=== PATIENT | male | born 1955 | race Caucasian/White ===

== ENCOUNTER 2016-11-15 11:04 | Inpatient (IN) ==
[~2016-11-15 11:04] MED LIST: ASPIRIN 325 MG TABLET PO ONE; DIAZEPAM 5 MG TABLET PO ONE; MAGNESIUM SULF RIDER 2 GM in PREMIX 1 EACH IV PRN; POTASSIUM CHLORIDE RIDER 10 MEQ in PREMIX 1 EACH IV PRN; SODIUM CHLORIDE 0.9% 1,000 ML IV SCH; diphenhydrAMINE CAP 25 MG CAPSULE PO ONE
--- NOTE | 2016-11-15 11:39 | Event Note ---
The patient has a history of resection of coronary disease. He has symptomatology certainly consistent with possible coronary disease. His evaluation revealed that his left ventricular function is diminished for unknown reason. His heart perfusion study was borderline. He has abnormal ECG consistent with LVH/ischemia. Because of his multiple risk factors and symptomatology he needs further evaluation and cardiac catheterization is appropriate for evaluation coronary disease and his cardiomyopathy. I discussed again cardiac catheterization and possible percutaneous intervention with the patient his reviewing the indication procedure, how it would be carried out and the risk. I discussed cardiac catheterization and percutaneous coronary intervention with the patient and available family. I reviewed with them the indications for the procedure and the basis of how the procedure would be carried out. I also reviewed with them the risk of the procedure which include but not necessarily limited to access site bleeding, bruising, pain, swelling or vascular injury that may require emergency vascular surgery, blood transfusion, or thrombin injection. Also discussed the possibility of stroke, myocardial infarction, arrhythmia which may require electrocardioversion, and the possibility of dye reaction that would require medical therapy. Also discussed the possibility of coronary artery injury, ruptured, closure or perforation that may require emergency bypass surgery. We also discussed the possibility of from a major complication. Their questions were answered. They voice understanding and agree to proceed.
--- NOTE | 2016-11-15 11:40 | History and Physical Update ---
Sedation H&P Update - History and Physical H&P was reviewed, the patient examined and there: are no changes in the patients condition since last H&P was completed. - Dictation Physical: refer to scanned H&P - Physical Exam Mental Status: alert and oriented Heart: regular rate and rhythm Lung: clear to auscultation Abdomen: within normal limits Vitals: within normal limits History and Physical Changes: None - Sedation Plan for Sedation: moderate Patient Consent: Procedure disscussed with patient and patinet has consented., Risks and benefits were discussed with patient,including infection,, bleeding, injury to surrounding structures, seizure, temporary nerve, Patient understands and accepts potential risks/benefits and agrees to, proceed. ASA Class: III Airway Assessment: Class III: Soft palate, base of uvula visible
[2016-11-15] MEDS ORDERED: ASPIRIN 325 MG TABLET ONE (11:47)
[2016-11-15] MEDS ORDERED: diphenhydrAMINE CAP 25 MG CAPSULE ONE (11:47)
[2016-11-15] MEDS ORDERED: DIAZEPAM 5 MG TABLET ONE (11:47)
[2016-11-15] MEDS ORDERED: LIDOCAINE 1% 20 ML VIAL ONE (12:14)
[2016-11-15] MEDS ORDERED: MIDAZOLAM 2 MG/2 ML VIAL ONE (12:15)
[2016-11-15] MEDS ORDERED: VERAPAMIL 5 MG/2 ML VIAL ONE (12:15)
[2016-11-15] MEDS ORDERED: NITROGLYCERIN DRIP 50 MG/250 ML BOTTLE IV ONE (12:15)
[2016-11-15] MEDS ORDERED: fentaNYL 100 MCG/2 ML VIAL ONE (12:15)
[2016-11-15 12:26] LABS: Calcium 8.8 MG/DL (8.5-10.1); Magnesium 2.2 MG/DL (1.8-2.4); Osmolality,Calculated 281.4 MOS/KG (273-304); Potassium 4.1 MMOL/L (3.5-5.1)
[2016-11-15] MEDS ORDERED: ENOXAPARIN 30 MG/0.3 ML SYRINGE ONE (12:30)
[2016-11-15] MEDS ORDERED: ACETAMINOPHEN 325 MG TABLET PO PRN (13:19)
[2016-11-15] MEDS ORDERED: NITROGLYCERIN SL 0.4 MG TABLET SL PRN (13:19)
[2016-11-15] MEDS ORDERED: ONDANSETRON 4 MG/2 ML VIAL IV PRN (13:19)
[2016-11-15] MEDS ORDERED: HYDROmorphone 2 MG/1 ML VIAL IV PRN (13:19)
[2016-11-15] MEDS ORDERED: ZALEPLON 5 MG CAPSULE PO PRN (13:27)
[2016-11-15] MEDS ORDERED: ALUMINUM/MAGNES/SIMETH MAX STR 30 ML UDCUP PO PRN (13:27)
[2016-11-15] MEDS ORDERED: SODIUM CHLORIDE 0.9% 1,000 ML IV SCH ×2 (13:30→21:00)
--- NOTE | 2016-11-15 13:30 | Operative Note ---
Date of procedure: 11/15/16 Procedure Preformed: Left heart catheterization with LV gram, WARD angiogram and coronary artery angiography. Unable to carry out procedure from right radial artery. Abdominal aortic angiogram with runoff into the iliacs. Surgeon / Physician: Francisco Olmedo Oncology Physician Assistant: Yina Euceda Post-op diagnosis: same Findings: High-grade coronary artery disease involving the left main coronary artery and RCA. Patient also has high-grade peripheral vascular disease involving the right and left iliacs. See full report for details. Specimens: none sent Estimated blood loss: minimal Condition: stable Anesthesia: local, conscious sedation Disposition: floor
--- NOTE | 2016-11-15 13:34 | Cardiac Catheterization ---
Date of Procedure:: 11/15/16 Post-op diagnosis: same Procedure: LEFT HEART CATHERIZATION History: Pre-Op diagnosis: Postoperative diagnosis: Procedures: 1. Left heart catheterization. This was initially attempted from right radial but had to transition to right common femoral artery approach 2. Left ventricular angiogram. 3. Selective left and right coronary angiograms. 4. Right common femoral artery angiogram with Angio-Seal hemostasis. 5. Left internal mammary artery angiogram. Equipment: Terumo 6 Vietnamese radial glide arterial sheath, Terumo 6 Vietnamese radial TIG 4.0 diagnostic. We are unable to carry out catheterization from this approach and transition to right common femoral artery. Large TR band. 6 Vietnamese arterial sheath, 6 Vietnamese diagnostic pigtail catheter, JL4 and JR4 diagnostic catheters. A 6 Vietnamese Angio-Seal hemostatic device. Medications: Preoperative Benadryl and Valium given by mouth. Lidocaine 1% local anesthesia 10.5 mls administered by myself. For radial approach verapamil 5 mg /NTG 200 mcg given intra-arterially through the radial artery sheath, Lovenox 30 mg IVP. Intraprocedure patient received Versed 1 mgs IVP, fentanyl 50 mcg IVP. Complications: None immediate. Contrast: Visipaque 130 milliliters. Description of procedure: After informed consent the patient was given preoperative medications and brought to the catheterization laboratory where their right groin and right anterior wrist and forearm was prepped and draped in usual fashion. IV sedation was then obtained after which local anesthesia with lidocaine was administered over the right radial artery. Using the double wall needle the radial artery was cannulated. Microguidewire was advanced through the cannula into the radial artery. We exchanged for the radial artery sheath that was advanced over the microguidewire. Guidewire was removed. The diagnostic 6 Vietnamese TIG 4.0 catheter was advanced and we attempted cardiac catheterization with this catheter. Because of the patient's anatomy we were unable to cross the aortic valve nor were we able to manipulate the catheter into the coronary arteries. It was decided that we would transition to the right common femoral artery. Local anesthesia was administered at the right groin over the right common femoral artery. Using modified Seldinger technique the right common femoral artery was cannulated with 6 Vietnamese arterial sheath placed. It was noted we had difficulty advancing the J-wire through the external iliac. A flush shot with contrast through the sheath revealed that we had a high-grade stenosis in the external iliac artery. The pigtail catheter was then advanced through all with this the sheath in a retrograde approach through the aorta to the aortic valve. The catheter was advanced through the aortic valve where left ventricular pressures were measured. The catheter was then pulled back into the aortic root and pressures measured. The catheter was then advanced across the aortic valve into the left ventricle where left ventricular angiogram was obtained in the right anterior oblique view. The pigtail catheter was then removed. The JL4 diagnostic coronary catheter was then advanced through the sheath in a retrograde approach and used to cannulate the left coronary artery of which angiograms were obtained in multiple projections. This catheter was then removed. The JR 4 diagnostic coronary catheter was then advanced retrograde through the aorta and used to cannulate the right coronary artery of which angiograms were obtained in multiple projections. This right coronary catheter was used to obtain selective left internal mammary artery angiogram. Angiograms were then reviewed. The right coronary catheter was pulled back into the sheath where a right common femoral artery angiogram was obtained with Angio-Seal hemostasis then obtained of this vessel. Before closing with a Angio-Seal device we though did use the pigtail catheter again to obtain a distal abdominal aortogram with runoff into the iliac vessels. There were no immediate complications. The TR band was then placed in the usual fashion and hemostasis obtained. Hemodynamic data: LV 106/10 , EDP 11 ; AO root 109/76 , mean 91 . Left ventricular angiogram: Left ventricle is normal size and ejection fraction is probably 45 may be 50%. No specific segmental wall motion normality is noted. It appears there is probably some left ventricular hypertrophy present. The aortic root is uncoiled. No gross of the pathology of the aorta. Aortic valve is probably try constructed. There is no significant mitral valve regurgitation noted. Left main coronary artery angiogram: Calcification is present especially distally. The main coronary appears to give rise to one is a small circumflex artery that gives rise to small circumflex artery. The LAD is a medium caliber long vessel that extends to the posterior apex. There is also was probably either a ramus intermedius or first diagonal branch with a takeoff in this area. There is probably at least 30% to 40% stenosis distally Left anterior descending artery angiogram: The LAD is a medium caliber vessel that extends to the posterior apical region. Proximally he has a high-grade stenosis with calcification at its ostium and takeoff of the left main coronary. This stenosis is 80-90%. There is what is probably a first diagonal/ ramus intermedius with a takeoff right at this area that also is involved in the stenosis that is 80-90%. The LAD beyond this has a long area of 50-60% stenosis. Circumflex artery angiogram: Circumflex artery is a small vessel giving rise to a small obtuse marginal branch. It is without any significant stenosis demonstrated. Right coronary artery angiogram: The RCA is a medium to large caliber dominant vessel that gives rise to a medium caliber PDA and is small medium caliber posterior lateral branches. They do not has a takeoff the distal RCA. The mid RCA has a 90% mid stenosis. Left internal mammary artery angiogram: The WARD is patent and after bypass surgery. There is no gradient in the subclavian artery. Right common femoral artery angiogram: This is carried out early and we see that the cuff artery is patent but the distal external iliac had a high-grade 80 -90 % stenosis. There is diffuse calcification. Distal abdominal aorta angiogram with runoff: The distal abdominal aorta is patent with diffuse irregularities. There is a slight aneurysmal dilation just above the bifurcation. The left common iliac appears to be intact with total occlusion past the takeoff of the internal iliac. There are collaterals present and we see reconstitution of the left common femoral artery. The right external iliac is occluded from the catheter where the 89% lesion/stenosis was noted. There is diffuse luminal irregularities. Impression: 1. Left ventricle is normal size of probably left ventricular hypertrophy with a ejection fraction of 45 and at best 50%. 2. LVEDP is normal at 11 mmHg. 3. Aortic valve is probably tricuspid structure without gradient. 4. No sent mitral valve regurgitation is noted. 5. RCA is dominant with 90% mid stenosis. 6. Left main coronary distally has 30-40% stenosis and calcification. 7. Circumflex arteries a small vessel without significant stenosis. 8. LAD gives rise to a large first diagonal/ramus intermedius branch very proximally. There is 80-90% stenosis of the ostium of the LAD involving the ostium of the first diagonal/ramus intermedius. 9. There is high-grade stenosis of the right and left iliac arteries a total occlusion of the left external iliac with reconstitution of the common femoral artery. Right external iliac has 89% stenosis. 10. Left coronary artery is patent and added for bypass surgery. 11. Successful hemostasis the right common femoral artery. Discussion: We will marked this patient post catheterization and will ask cardiovascular to see the patient for bypass surgery. He will need aggressive risk factor modification. Implants: None Anesthesia: local, moderate conscious sedation Surgeon / Physician: Francisco Olmedo Side Seam Machine Operator: other (Yina Euceda RN) Estimated blood loss: minimal Specimens: none sent Condition: stable Disposition: floor - Medications / Follow-up
[2016-11-15] MEDS ORDERED: DEXTROSE 50% 25 GM/50 ML VIAL IV PRN ×2 (13:50)
[2016-11-15] MEDS ORDERED: GLUCAGON 1 MG VIAL IM PRN ×2 (13:50)
--- NOTE | 2016-11-15 13:58 | Cardiothoracic Progress Note ---
Cardiothoracic Subjective Interval history: Patient is a 61-year-old man who underwent outpatient cardiac catheterization today and was found to have critical disease of the left main coronary artery and critical disease also over the right coronary artery. Patient was referred for bypass surgery and I agree that this is the best course. Patient is scheduled for Saturday morning and this is been discussed at length with patient his daughter and son-in-law. Exam (Progress Note) - Constitutional Vitals: Period Temp Pulse Resp BP Sys/Leyva Pulse Ox Last 24 Hr 97.9 F 82 18 193/110 96 Result/EKG - Labs CBC & BMP: 11/15/16 Unknown Labs: Laboratory Results - last 24 hr 11/15/16 Unknown Sodium 140 Potassium 4.1 Chloride 107 Carbon Dioxide 22 Anion Gap 15.1 H BUN 20 H Creatinine 1.40 H GFR Calculation 65 BUN/Creatinine Ratio 14.00 Glucose 95 Calculated Osmolality 281.4 Calcium 8.8 Magnesium 2.2 Quality Measures - VTE Contraindication to Pharmacological VTE Prophylaxis: High Risk of Bleeding
--- NOTE | 2016-11-15 14:25 | EKG Report ---
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
--- NOTE | 2016-11-15 14:25 | XRay Report ---
XR chest 1V portable Indication: Coronary artery disease Comparison: 30 October 2016 Findings: The heart and mediastinum are normal in size and configuration. The pulmonary vascularity is normal in caliber. Lung volumes are increased with prominent bronchial markings. No lung infiltrates, effusions, pneumothorax or other abnormality is demonstrated. Impression: Chronic lung changes. No acute process or significant change. PROCEDURE INTERPRETED AT [facility] DEPARTMENT OF RADIOLOGY Final Report Signed by: Dr. Nick Sewell
[2016-11-15 14:46] LABS: Basophils # 0.1 10*3/uL (0.0-0.2); Basophils % 1.6 % (0.0-0.8); Eosinophils # 0.4 10*3/uL (0.0-0.87); Eosinophils % 4.8 % (0.00-10.9); Hematocrit 43.9 VOL% (42.0-52.0); Hemoglobin 15.3 GM/DL (14.0-18.0); Immature Granulocytes % 0.6 %; Immature Granulocytes Absolute 0.05 #; Lymphocytes # 2.2 10*3/uL (1.4-4.0); Lymphocytes % 25.3 % (21.2-54.2); Mean Corpuscular HGB Conc 34.9 GM/DL (32-36); Mean Corpuscular Hemoglobin 31 PG (27-34); Mean Corpuscular Volume 89.8 FL (87-102); Mean Platelet Volume 10.1 FL (9.6-12.0); Monocytes # 0.6 10*3/uL (0.11-0.8); Monocytes % 6.9 % (1.7-12.7); Neutrophils # 5.4 10*3/uL (1.4-7.4); Neutrophils % 60.8 % (38.7-73.9); Platelet Count 217 T/CUMM (130-400); Red Blood Count 4.89 MC/CUMM (3.8-5.5); Red Cell Distribution Width 13.5 % (9.3-17.3); White Blood Count 8.8 T/CUMM (4-12)
[2016-11-15 15:00] LABS: PT Patient Result 10.7 SECS
[2016-11-15 15:23] LABS: Albumin 3.4 G/DL (3.4-5.0); Bilirubin,Total 0.4 MG/DL (0.2-1.0); Calcium 8.9 MG/DL (8.5-10.1); Osmolality,Calculated 277.5 MOS/KG (273-304); Potassium 4.1 MMOL/L (3.5-5.1); Total Protein 6.9 G/DL (6.4-8.3)
--- NOTE | 2016-11-15 15:40 | Event Note ---
Patient is stable postcatheterization. Reviewed with him the findings of his catheterization. His is present on reviewed with her as well. He is for bypass surgery tomorrow.
[2016-11-15 16:09] LABS: Allen Test Positive
[2016-11-15 16:11] LABS: ABG Base Excess -1.7 MMOL/L (-2.5-2.5); ABG HCO3 21.2 MMOL/L (20-26); ABG Oxygen Saturation 94.7 % (95-100); ABG PCO2 31.7 MM HG (35-48); ABG PH 7.444 (7.35-7.45); ABG PO2 69.7 MM HG (80-95); ABG TCO2 22.2 MMOL/L (23-27)
[2016-11-15] MEDS: CHLORHEXIDINE 4% SOLN 118 ML BOTTLE TOP SCH ×2 (17:10→20:31)
--- NOTE | 2016-11-15 18:07 | Sleep Medicine Consult ---
Assessment and Plan (1) Unspecified sleep apnea Status: Acute Assessment and plan: This patient does have significant risk for coronary artery disease with his history of hypertension snoring and sleepiness. We will schedule him for outpatient sleep evaluation after discharge. Thank you for this consult and the opportunity to participate in his care. If we can be of further assistance in his hospital stay, please do not hesitate to reconsult sleep medicine. Current Visit: Yes (2) Essential hypertension Status: Acute Assessment and plan: The prevalence rate for obstructive sleep apnea patients with hypertension is 35 %. That rate can be as high as 80% in patients who require 4 or more medications for blood pressure control. Current Visit: Yes (3) Coronary artery disease Status: Acute Assessment and plan: The Pop data from Lancet 2005 proved significant reduction in the risk of fatal and nonfatal cardiac events in patients with severe obstructive sleep apnea compliant with CPAP, in comparison with those noncompliant with CPAP for severe sleep apnea. Patients with severe obstructive sleep apnea compliant with CPAP therapy had a risk similar to patients who did not even snore. The risk for cardiac events in patients noncompliant with CPAP for severe obstructive sleep apnea were 4-5 times higher for stroke or heart attack and 2- 3 times higher from from stroke or heart attack in that study. Current Visit: Yes History of Present Illness Chief complaint: Sleep apnea History of present illness: Mr. Salas is a 61 year old male admitted with chest pain and found to have abnormal heart cath with critical coronary artery disease. He has been seen by Dr. Ramy Elena and is to undergo bypass surgery tomorrow. He had screening done for sleep apnea and had a stop bang score of 5 and an [place] sleepiness score of 12. He does snore loudly and has difficulty maintaining sleep. He has no history of awakening from sleep short of breath or being told that he stops breathing during his sleep. He only urinates once or twice a night. He does have fatigue and sleepiness during the day. He does have a past medical history of hypertension in addition to his newly diagnosed coronary artery disease. Home Medications Medication Instructions Recorded Confirmed Type Diltiazem Cd Cap [Cardizem CD] 180 mg PO DAILY 11/14/16 11/15/16 History Valsartan/Hydrochlorothiazide 1 each PO DAILY 11/14/16 11/15/16 History [Valsartan-Hctz 320-25 mg Tab] Allergies Allergy/AdvReac Type Severity Reaction Status Date / Time No Known Allergies Allergy Verified 11/15/16 11:28 Review of systems: Otherwise unremarkable from a sleep standpoint. Exam (Pulmonay) H&P - Constitutional Vitals: Period Temp Pulse Resp BP Sys/Leyva Pulse Ox Last 24 Hr 97.7 F-97.9 F 76-82 17-18 159-193/103-110 95-96 Exam: He is alert and responsive in no acute distress. Pupils equal round reactive to light and accommodation. Extraocular movements intact. Oropharynx with a class III Mallampati exam. Neck supple without adenopathy or thyromegaly. No supraclavicular adenopathy is noted. Chest with symmetrical breath sounds without focal wheeze, rhonchi, or rales. Cardiac exam reveals a regular rhythm without murmur or gallop. Abdomen soft nontender without palpable hepatosplenomegaly or mass. Extremities are without clubbing, cyanosis, or edema. Neurologically, he is grossly intact. He moves all extremities with good strength and ambulates with a normal gait. Medical,Surgical,& Family Hx - Medical History Cardio: History of: CAD, Hypertension Neurology: No history of: Seizures Endocrine: History of: Dyslipidemia - Surgical History Cardiac Surgeries: Sugical HX of: Cardiac Catheterization - Family History Family History: Reports;: Family Heart Disease, Family Hypertension - Social History Smoking Status: Current every day smoker Frequency of Alcohol Use: Occasionally Type of Drug Use: None Results - Labs CBC & BMP: 11/15/16 14:36 11/15/16 Unknown Lab Results: I have reviewed the past 24 hour labs Quality Measures - VTE Contraindication to Pharmacological VTE Prophylaxis: High Risk of Bleeding
[2016-11-15] MEDS: METOPROLOL TARTRATE 25 MG TABLET PO SCH (20:31)
[2016-11-15] MEDS: CHLORHEXIDINE 0.12% ORAL RINSE 60 ML BOTTLE SWISH/SPIT SCH (20:36)
[2016-11-15] MEDS ORDERED: ROSUVASTATIN 20 MG TABLET PO SCH (21:00)
[2016-11-16] MEDS ORDERED: VANCOMYCIN 1,000 MG VIAL ONE (04:41)
[2016-11-16] MEDS ORDERED: PAPAVERINE 60 MG/2 ML VIAL ONE (04:41)
[2016-11-16 05:14] LABS: Calcium 9.3 MG/DL (8.5-10.1); Osmolality,Calculated 285.1 MOS/KG (273-304); Potassium 4.4 MMOL/L (3.5-5.1); Risk Ratio 7.23; VLDL CHOLESTEROL 45.2 MG/DL
[2016-11-16] MEDS ORDERED: MIDAZOLAM 10 MG/2 ML VIAL ONE ×3 (05:52→11:57)
[2016-11-16] MEDS ORDERED: SUFentanil 250 MCG/5 ML AMP ONE ×2 (05:52→11:56)
[2016-11-16] MEDS ORDERED: CEFUROXIME INJ 1,500 MG in SODIUM CHLORIDE 0.9% 100 ML IV ONE (06:00)
[2016-11-16] MEDS: CHLORHEXIDINE 0.12% ORAL RINSE 60 ML BOTTLE SWISH/SPIT SCH ×3 (06:12→22:23)
[2016-11-16] MEDS: PANTOPRAZOLE 40 MG TABLET PO SCH ×2 (06:12→06:29)
[2016-11-16] MEDS: METOPROLOL TARTRATE 25 MG TABLET PO SCH ×2 (06:30→10:52)
[2016-11-16] MEDS ORDERED: VECURONIUM 10 MG VIAL IV ONE (06:47)
[2016-11-16] MEDS ORDERED: FUROSEMIDE 20 MG/2 ML VIAL ONE ×2 (06:47→17:29)
[2016-11-16] MEDS ORDERED: PHENYLEPHRINE 1 MG/10 ML SYRINGE IV ONE (06:47)
[2016-11-16] MEDS ORDERED: NITROGLYCERIN 50 MG/250 ML BOTTLE IV ONE (06:47)
[2016-11-16] MEDS ORDERED: CALCIUM CHLORIDE 1,000 MG/10 ML SYRINGE IV ONE (06:47)
[2016-11-16] MEDS ORDERED: AMINOCAPROIC ACID 5,000 MG/20 ML VIAL IV ONE (06:47)
[2016-11-16] MEDS ORDERED: PHENYLEPHRINE 20 MG/250 ML PREMIX IV ONE (06:47)
[2016-11-16] MEDS ORDERED: ETOMIDATE 20 MG/10 ML VIAL IV ONE (06:47)
[2016-11-16 08:08] LABS: ABG HCO3 22.3 MMOL/L (20-26); ABG Oxygen Saturation 99.2 % (95-100); ABG PH 7.313 (7.35-7.45); ABG PO2 262.3 MM HG (80-95); ABG TCO2 23.7 MMOL/L (23-27); Glucose Heart Surgery 100 MG/DL (74-106); Hemoglobin Heart Surgery 14.7 G/DL (14.0-18.0); Ionized Calcium Arterial 1.17 MMOL/L (1.21-1.46); PH Patient Temp Arterial 7.313; PO2 Patient Temp Arterial 262.3 MM HG; Patient Temperature 37 CELCIUS; Potassium Heart/CVR 3.8 MMOL/L (3.5-5.1); Sodium Heart/CVR 140 MMOL/L (135-145)
[2016-11-16 08:25] LABS: Apearance,Urine CLEAR (Clear); Bilirubin,Urine Negative (Negative); Blood, Urine Negative (Negative); Glucose,Urine (UA) Negative (Negative); Ketones,Urine Negative (Negative); Mucus,Urine Occasional /LPF (Occasional); Nitrite,Urine Negative (Negative); Protein,Urine Negative; Urine Color Straw (Yellow); Urine Urobilinogen < 2.0 EU/DL (0.2-1.0); WBC,Urine <1 /HPF (0-6)
[2016-11-16] MEDS ORDERED: DEXTROSE 50% 25 GM/50 ML SYRINGE IV PRN ×3 (08:30→13:30)
[2016-11-16] MEDS ORDERED: ASPIRIN EC 81 MG TABLET PO SCH (09:00)
[2016-11-16] MEDS ORDERED: VALSARTAN/HCTZ 160-12.5 MG TABLET PO SCH (09:00)
[2016-11-16] MEDS ORDERED: DILTIAZEM CD 180 MG CAPSULE PO SCH (09:00)
[2016-11-16 09:15] LABS: Hematocrit Heart Surgery 29.3 PERCENT (42-52); Hemoglobin Heart Surgery 9.5 G/DL (14.0-18.0); PCO2 Patient Temp Venous 47.7 MM HG; PH Patient Temp Venous 7.323; PO2 Patient Temp Venous 46.6 MM HG; Potassium Heart/CVR 4.8 MMOL/L (3.5-5.1); VBG Base Excess -1.5 MEQ/L (0-4); VBG HCO3 22.8 MEQ/L (24-28); VBG Oxygen Saturation 79.3 %; VBG PCO2 47.7 MMHG (41-51); VBG PH 7.323; VBG PO2 46.6 MMHG (17-40)
[2016-11-16] MEDS ORDERED: POTASSIUM CHLORIDE RIDER 100 ML IV ONE (09:40)
[2016-11-16 09:41] LABS: Hematocrit Heart Surgery 32.7 PERCENT (42-52); Hemoglobin Heart Surgery 10.6 G/DL (14.0-18.0); PCO2 Patient Temp Venous 38.6 MM HG; PH Patient Temp Venous 7.389; PO2 Patient Temp Venous 39.3 MM HG; Potassium Heart/CVR 5.4 MMOL/L (3.5-5.1); VBG Base Excess -1.4 MEQ/L (0-4); VBG HCO3 22.9 MEQ/L (24-28); VBG Oxygen Saturation 79.4 %; VBG PCO2 42.5 MMHG (41-51); VBG PH 7.36; VBG PO2 45.1 MMHG (17-40)
[2016-11-16] MEDS: CHLORHEXIDINE 4% SOLN 118 ML BOTTLE TOP SCH (10:52)
[2016-11-16 11:02] LABS: ABG Base Excess -3.7 MMOL/L (-2.5-2.5); ABG HCO3 21.3 MMOL/L (20-26); ABG Oxygen Saturation 97.1 % (95-100); ABG PCO2 42.8 MM HG (35-48); ABG PH 7.324 (7.35-7.45); ABG PO2 96.5 MM HG (80-95); ABG TCO2 20.1 MMOL/L (23-27); Glucose Heart Surgery 170 MG/DL (74-106); Hematocrit Heart Surgery 34.3 PERCENT (42-52); Hemoglobin Heart Surgery 11.1 G/DL (14.0-18.0); Ionized Calcium Arterial 1.28 MMOL/L (1.21-1.46); PCO2 Patient Temp Arterial 42.8 MMHG; PH Patient Temp Arterial 7.324; PO2 Patient Temp Arterial 96.5 MM HG; Patient Temperature 37 CELCIUS; Potassium Heart/CVR 4.3 MMOL/L (3.5-5.1); Sodium Heart/CVR 136 MMOL/L (135-145)
[2016-11-16] MEDS ORDERED: THROMBIN TOPICAL (RECOMBINANT) 5,000 UNIT VIAL TOP ONE (11:04)
[2016-11-16] MEDS ORDERED: PHENYLEPHRINE DRIP 40 MG/250 ML PREMIX IV ONE (11:35)
--- NOTE | 2016-11-16 11:52 | Operative Note ---
Date of procedure: 11/16/16 Pre-op diagnosis: Coronary artery disease Post-op diagnosis: same Procedure: Procedure: Coronary bypass grafting 3 with a left internal mammary graft to the anterior descending coronary artery and saphenous vein graft to the obtuse marginal and right coronary arteries. Findings: Patient is a 61-year-old man who presented with substernal chest discomfort and cardiac catheterization demonstrating critical three-vessel coronary disease with left main coronary involvement. Patient was referred for bypass surgery. At the time of surgery left ventricular function was noted to be normal. A left internal mammary artery was placed as a graft to the anterior descending coronary artery which was a large vessel and free of disease at the site of anastomosis. Saphenous vein grafts were placed to the obtuse marginal and to the right coronary arteries both of which were large vessels and free of disease at the site of anastomosis. Patient tolerated procedure well and returned to recovery in satisfactory condition. Procedure: Patient brought the operating room placed on the operating table in supine position. After satisfactory induction of general anesthesia the chest abdomen and legs were prepped and draped in a sterile fashion. Greater saphenous vein was harvested from the left lower leg and prepared as an arterial graft. Incision in the leg was closed with 3-0 silk cutaneous Monocryl and 3-0 subcuticular Monocryl. A standard sternotomy incision was made and the sternum was divided and the heart suspended in a pericardial cradle. The left internal mammary artery was dissected free from its position in the anterior chest wall and prepared as an arterial graft. Patient was prepared for cardiopulmonary bypass with systemic heparinization cannulation of the ascending aorta and right atrium. Cardiopulmonary bypass was begun and the aorta was crossclamped and the heart arrested with cardioplegia solution injected into the aortic root. Heart was protected during the period of crossclamping with topical saline slush. Distal anastomoses were constructed as noted above and then the aorta was unclamped reestablishing cardiac action. Proximal anastomoses were constructed between the ascending aorta and the inflow ends of the saphenous vein grafts and then the patient was weaned from cardiopulmonary bypass. Heparin effect was reversed with protamine and decannulation was carried out in usual fashion with a defects in the ascending aorta and right atrium closed with 3-0 Prolene. Operative field was inspected for hemostasis and this was considered adequate incision was closed with interrupted stainless steel wire and the sternum and 0 Monopril in the presternal fascia. Skin was closed with 3-0 subcuticular Monocryl. 2 chest tubes were left in the anterior mediastinum and brought out through separate stab incisions. Patient was taken to recovery in satisfactory condition. Anesthesia: REMIGIO Surgeon / Physician: Ramy Elena Estimated blood loss: other (Unable to determine because of cardiopulmonary bypass) Condition: stable Disposition: ICU Results - Labs CBC & BMP: 11/16/16 11:00 11/16/16 04:05 Discharge Plan - Discharge Medications No Action Valsartan/Hydrochlorothiazide [Valsartan-Hctz 320-25 mg Tab] 1 each PO DAILY Diltiazem Cd Cap [Cardizem CD] 180 mg PO DAILY - Follow Up or Referral - Forms/Instructions
[2016-11-16] MEDS ORDERED: SUFentanil 50 MCG/ML AMP ONE (11:56)
[2016-11-16] MEDS: LACTATED RINGERS 1,000 ML IV PRN ×3 (12:00→13:31)
[2016-11-16] MEDS ORDERED: HEPARIN/NACL 0.9% 2 UNITS/ML 500 ML IV ONE (12:11)
--- NOTE | 2016-11-16 12:53 | Cardiology Progress Note ---
Cardiology - PN: Subj Interval history: Cardiology note Just returned from operating room status post three-vessel CABG with WARD graft to LAD, vein graft to OM vein graft to right coronary. Preop EF 45-50%. Telemetry shows sinus rhythm rate 90 Blood pressure 100/57, currently on no drips Cardiac gallop 3.5 cardiac index 1.7 Making good urine output Plan Follow chest tube output Wean vent as tolerated Labs pending Exam (Progress Note) - Constitutional Vitals: Period Temp Pulse Resp BP Sys/Leyva Pulse Ox Last 24 Hr 96.6 F-97.9 F 72-98 16-20 132-162/85-103 92-98 Result/EKG - Labs CBC & BMP: 11/16/16 11:00 11/16/16 04:05 Labs: Laboratory Results - last 24 hr 11/15/16 11/15/16 11/15/16 14:36 14:36 14:36 WBC 8.8 RBC 4.89 Hgb 15.3 Hct 43.9 MCV 89.8 MCH 31 MCHC 34.9 RDW 13.5 Plt Count 217 MPV 10.1 Neut % (Auto) 60.8 Lymph % (Auto) 25.3 [place] % (Auto) 6.9 Eos % (Auto) 4.8 Baso % (Auto) 1.6 H Neut # (Auto) 5.4 Lymph # (Auto) 2.2 [place] # (Auto) 0.6 Eos # (Auto) 0.4 Baso # (Auto) 0.1 Immature Gran % 0.6 Nucleated RBC % 0.0 Immature Gran # 0.05 Nucleated RBCs # 0.00 Immature Plt Fraction 0.0 INR 1.0 PT Patient/Control Mix 10.7 Patient Temperature ABG pH ABG pH at Pt Temp ABG pCO2 ABG pCO2 at Pt Temp ABG pO2 ABG pO2 at Pt Temp ABG HCO3 ABG Total CO2 ABG O2 Saturation ABG Base Excess ABG Sodium VBG pH VBG pCO2 VBG pO2 VBG HCO3 VBG Total CO2 VBG O2 Saturation VBG Base Excess Hemoglobin Hematocrit Ionized Calcium FiO2 Sodium 139 Potassium 4.1 Chloride 108 H Carbon Dioxide 26 Anion Gap 9.1 BUN 19 H Creatinine 1.30 GFR Calculation 71 BUN/Creatinine Ratio 14.00 Glucose 80 POC Glucose Calculated Osmolality 277.5 Calcium 8.9 Venous Ioniz Calcium Total Bilirubin 0.40 AST 15 ALT 28 Alkaline Phosphatase 109 Total Protein 6.9 Albumin 3.4 Globulin 3.5 Albumin/Globulin Ratio 0.9 L Triglycerides Cholesterol LDL Cholesterol VLDL Cholesterol HDL Cholesterol Heart Disease Risk Ratio Urine Color Urine Appearance Urine pH Ur Specific [place] Urine Protein Urine Glucose (UA) Urine Ketones Urine Blood Urine Nitrate Urine Bilirubin Urine Urobilinogen Urine Leukocytes Urine WBC Urine Mucus Ur Culture Indicated? Blood Type Antibody Screen Crossmatch 11/15/16 11/15/16 11/15/16 14:36 14:36 16:00 WBC RBC Hgb Hct MCV MCH MCHC RDW Plt Count MPV Neut % (Auto) Lymph % (Auto) [place] % (Auto) Eos % (Auto) Baso % (Auto) Neut # (Auto) Lymph # (Auto) [place] # (Auto) Eos # (Auto) Baso # (Auto) Immature Gran % Nucleated RBC % Immature Gran # Nucleated RBCs # Immature Plt Fraction INR PT Patient/Control Mix Patient Temperature ABG pH 7.444 ABG pH at Pt Temp ABG pCO2 31.7 L ABG pCO2 at Pt Temp ABG pO2 69.7 L ABG pO2 at Pt Temp ABG HCO3 21.2 ABG Total CO2 22.2 L ABG O2 Saturation 94.7 L ABG Base Excess -1.7 ABG Sodium VBG pH VBG pCO2 VBG pO2 VBG HCO3 VBG Total CO2 VBG O2 Saturation VBG Base Excess Hemoglobin Hematocrit Ionized Calcium FiO2 21.00 Sodium Potassium Chloride Carbon Dioxide Anion Gap BUN Creatinine GFR Calculation BUN/Creatinine Ratio Glucose POC Glucose Calculated Osmolality Calcium Venous Ioniz Calcium Total Bilirubin AST ALT Alkaline Phosphatase Total Protein Albumin Globulin Albumin/Globulin Ratio Triglycerides Cholesterol LDL Cholesterol VLDL Cholesterol HDL Cholesterol Heart Disease Risk Ratio Urine Color Urine Appearance Urine pH Ur Specific [place] Urine Protein Urine Glucose (UA) Urine Ketones Urine Blood Urine Nitrate Urine Bilirubin Urine Urobilinogen Urine Leukocytes Urine WBC Urine Mucus Ur Culture Indicated? Blood Type O POSITIVE O POSITIVE Antibody Screen Negative Crossmatch See Detail 11/16/16 11/16/16 11/16/16 04:05 05:52 08:06 WBC RBC Hgb Hct MCV MCH MCHC RDW Plt Count 75 L D MPV Neut % (Auto) Lymph % (Auto) [place] % (Auto) Eos % (Auto) Baso % (Auto) Neut # (Auto) Lymph # (Auto) [place] # (Auto) Eos # (Auto) Baso # (Auto) Immature Gran % Nucleated RBC % Immature Gran # Nucleated RBCs # Immature Plt Fraction INR PT Patient/Control Mix Patient Temperature ABG pH ABG pH at Pt Temp ABG pCO2 ABG pCO2 at Pt Temp ABG pO2 ABG pO2 at Pt Temp ABG HCO3 ABG Total CO2 ABG O2 Saturation ABG Base Excess ABG Sodium VBG pH VBG pCO2 VBG pO2 VBG HCO3 VBG Total CO2 VBG O2 Saturation VBG Base Excess Hemoglobin Hematocrit Ionized Calcium FiO2 Sodium 142 Potassium 4.4 Chloride 108 H Carbon Dioxide 27 Anion Gap 11.4 BUN 21 H Creatinine 1.50 H GFR Calculation 60 BUN/Creatinine Ratio 14.00 Glucose 91 POC Glucose 77 Calculated Osmolality 285.1 Calcium 9.3 Venous Ioniz Calcium Total Bilirubin AST ALT Alkaline Phosphatase Total Protein Albumin Globulin Albumin/Globulin Ratio Triglycerides 226 H Cholesterol 217 H LDL Cholesterol 146.0 VLDL Cholesterol 45.2 HDL Cholesterol 30 L Heart Disease Risk Ratio 7.23 Urine Color Urine Appearance Urine pH Ur Specific [place] Urine Protein Urine Glucose (UA) Urine Ketones Urine Blood Urine Nitrate Urine Bilirubin Urine Urobilinogen Urine Leukocytes Urine WBC Urine Mucus Ur Culture Indicated? Blood Type Antibody Screen Crossmatch 11/16/16 11/16/16 11/16/16 08:06 08:07 09:05 WBC RBC Hgb Hct MCV MCH MCHC RDW Plt Count MPV Neut % (Auto) Lymph % (Auto) [place] % (Auto) Eos % (Auto) Baso % (Auto) Neut # (Auto) Lymph # (Auto) [place] # (Auto) Eos # (Auto) Baso # (Auto) Immature Gran % Nucleated RBC % Immature Gran # Nucleated RBCs # Immature Plt Fraction INR PT Patient/Control Mix Patient Temperature 37 37 ABG pH 7.313 L ABG pH at Pt Temp 7.313 7.323 ABG pCO2 45.0 ABG pCO2 at Pt Temp 45.0 47.7 ABG pO2 262.3 H ABG pO2 at Pt Temp 262.3 46.6 ABG HCO3 22.3 ABG Total CO2 23.7 ABG O2 Saturation 99.2 ABG Base Excess -4.0 L ABG Sodium 140 132 L VBG pH 7.323 VBG pCO2 47.7 VBG pO2 46.6 H VBG HCO3 22.8 L VBG Total CO2 22.9 VBG O2 Saturation 79.3 VBG Base Excess -1.5 L Hemoglobin 14.7 9.5 L Hematocrit 43.0 29.3 L Ionized Calcium 1.17 L FiO2 21.00 Sodium Potassium 3.8 4.8 Chloride Carbon Dioxide Anion Gap BUN Creatinine GFR Calculation BUN/Creatinine Ratio Glucose 100 283 H POC Glucose Calculated Osmolality Calcium Venous Ioniz Calcium 0.95 L Total Bilirubin AST ALT Alkaline Phosphatase Total Protein Albumin Globulin Albumin/Globulin Ratio Triglycerides Cholesterol LDL Cholesterol VLDL Cholesterol HDL Cholesterol Heart Disease Risk Ratio Urine Color Straw Urine Appearance Clear Urine pH 6.0 Ur Specific [place] 1.010 Urine Protein Negative Urine Glucose (UA) Negative Urine Ketones Negative Urine Blood Negative Urine Nitrate Negative Urine Bilirubin Negative Urine Urobilinogen < 2.0 H Urine Leukocytes Negative Urine WBC <1 Urine Mucus Occasional Ur Culture Indicated? Not indicated Blood Type Antibody Screen Crossmatch 11/16/16 11/16/16 11/16/16 09:41 11:00 11:00 WBC RBC Hgb Hct MCV MCH MCHC RDW Plt Count 113 L D MPV Neut % (Auto) Lymph % (Auto) [place] % (Auto) Eos % (Auto) Baso % (Auto) Neut # (Auto) Lymph # (Auto) [place] # (Auto) Eos # (Auto) Baso # (Auto) Immature Gran % Nucleated RBC % Immature Gran # Nucleated RBCs # Immature Plt Fraction INR PT Patient/Control Mix Patient Temperature 35 37 ABG pH 7.324 L ABG pH at Pt Temp 7.389 7.324 ABG pCO2 42.8 ABG pCO2 at Pt Temp 38.6 42.8 ABG pO2 96.5 H ABG pO2 at Pt Temp 39.3 96.5 ABG HCO3 21.3 ABG Total CO2 20.1 L ABG O2 Saturation 97.1 ABG Base Excess -3.7 L ABG Sodium 132 L 136 VBG pH 7.360 VBG pCO2 42.5 VBG pO2 45.1 H VBG HCO3 22.9 L VBG Total CO2 21.9 VBG O2 Saturation 79.4 VBG Base Excess -1.4 L Hemoglobin 10.6 L 11.1 L Hematocrit 32.7 L 34.3 L Ionized Calcium 1.28 FiO2 80.00 Sodium Potassium 5.4 H 4.3 Chloride Carbon Dioxide Anion Gap BUN Creatinine GFR Calculation BUN/Creatinine Ratio Glucose 225 H 170 H POC Glucose Calculated Osmolality Calcium Venous Ioniz Calcium 1.01 L Total Bilirubin AST ALT Alkaline Phosphatase Total Protein Albumin Globulin Albumin/Globulin Ratio Triglycerides Cholesterol LDL Cholesterol VLDL Cholesterol HDL Cholesterol Heart Disease Risk Ratio Urine Color Urine Appearance Urine pH Ur Specific [place] Urine Protein Urine Glucose (UA) Urine Ketones Urine Blood Urine Nitrate Urine Bilirubin Urine Urobilinogen Urine Leukocytes Urine WBC Urine Mucus Ur Culture Indicated? Blood Type Antibody Screen Crossmatch Quality Measures - VTE Contraindication to Pharmacological VTE Prophylaxis: High Risk of Bleeding
[2016-11-16] MEDS: POTASSIUM CHLORIDE RIDER 20 MEQ in PREMIX 1 EACH IV PRN ×3 (13:00→23:35)
[2016-11-16] MEDS ORDERED: MAGNESIUM SULF RIDER 4 GM in PREMIX 1 EACH IV PRN (13:02)
[2016-11-16] MEDS ORDERED: SODIUM CHLORIDE 0.45% 1,000 ML IV SCH ×2 (13:02)
[2016-11-16] MEDS ORDERED: NITROPRUSSIDE 100 MG in DEXTROSE 5% 250 ML IV PRN (13:02)
[2016-11-16] MEDS ORDERED: INSULIN REGULAR 100 UNIT/ML IV PRN (13:02)
[2016-11-16] MEDS ORDERED: ONDANSETRON 4 MG/2 ML VIAL IV PRN (13:02)
[2016-11-16] MEDS ORDERED: ACETAMINOPHEN 650 MG SUPP RECTAL PRN (13:02)
[2016-11-16] MEDS ORDERED: INSULIN REGULAR 100 UNIT/ML IV ONE (13:02)
[2016-11-16] MEDS ORDERED: PHENYLEPHRINE DRIP 40 MG/250 ML PREMIX IV PRN (13:02)
[2016-11-16] MEDS ORDERED: MIDAZOLAM 10 MG/2 ML VIAL IV PRN (13:02)
[2016-11-16] MEDS ORDERED: MAGNESIUM SULF RIDER 2 GM in PREMIX 1 EACH IV PRN (13:02)
[2016-11-16] MEDS ORDERED: MORPHINE 10 MG/1 ML VIAL IV PRN (13:02)
[2016-11-16] MEDS ORDERED: LACTATED RINGERS 250 ML IV PRN (13:02)
[2016-11-16] MEDS ORDERED: VECURONIUM 10 MG VIAL IV PRN ×2 (13:02)
[2016-11-16] MEDS ORDERED: MIDAZOLAM 2 MG/2 ML VIAL IV PRN (13:02)
[2016-11-16] MEDS ORDERED: CALCIUM CHLORIDE 1,000 MG/10 ML SYRINGE IV PRN (13:02)
[2016-11-16] MEDS ORDERED: ALBUMIN 5% 12.5 GM/250 ML VIAL IV ONE (13:04)
[2016-11-16 13:08] LABS: ABG Base Excess -5.1 MMOL/L (-2.5-2.5); ABG HCO3 20.7 MMOL/L (20-26); ABG Oxygen Saturation 95.9 % (95-100); ABG PCO2 41.4 MM HG (35-48); ABG PH 7.317 (7.35-7.45); ABG PO2 91.8 MM HG (80-95); Glucose Heart Surgery 121 MG/DL (74-106)
[2016-11-16] MEDS: ALBUMIN 5% 12.5 GM in PREMIX 1 EACH IV PRN ×4 (13:09→22:21)
[2016-11-16 13:21] LABS: CKMB % 7.1 %
[2016-11-16 13:23] LABS: Troponin I Only 2.97 NG/ML (0.00-0.045)
[2016-11-16 13:24] LABS: Albumin 2.5 G/DL (3.4-5.0); Bilirubin,Total 0.4 MG/DL (0.2-1.0); Calcium 7.5 MG/DL (8.5-10.1); Magnesium 2.3 MG/DL (1.8-2.4); Potassium 4.3 MMOL/L (3.5-5.1); Total Protein 4.8 G/DL (6.4-8.3)
--- NOTE | 2016-11-16 13:44 | XRay Report ---
History: Postop line placement. Postop thoracic surgery Date: 11/16/2016 Study: Chest x-ray AP portable Comparison exam: 11/15/2016 The patient is status post median sternotomy. The endotracheal tube is well-positioned. A right subclavian Keota-Janette catheter is positioned over the proximal left descending pulmonary artery level. The left IJ central line is positioned with its tip over the superior vena cava. Chest drainage tubes overlie the mediastinum and left lung base. There is no obvious pneumothorax. There is cardiomegaly. There is some mild left lower lobe atelectasis and probable mild left pleural effusion. There is extrinsic tubing superimposed over the right lung apex. There is no confluent infiltrate to suggest pneumonia. Osseous structures are unremarkable. Impression: The supporting tubes are in satisfactory position. Left lower lobe atelectasis. Otherwise stable postoperative chest PROCEDURE INTERPRETED AT [facility] DEPARTMENT OF RADIOLOGY Final Report Signed by: Dr. Marjan Sim
[2016-11-16 14:03] LABS: Basophils # 0.1 10*3/uL (0.0-0.2); Basophils % 0.4 % (0.0-0.8); Eosinophils # 0.1 10*3/uL (0.0-0.87); Eosinophils % 0.7 % (0.00-10.9); Hematocrit 30.3 VOL% (42.0-52.0); Hemoglobin 10.4 GM/DL (14.0-18.0); Immature Granulocytes % 0.6 %; Immature Granulocytes Absolute 0.08 #; Lymphocytes # 0.9 10*3/uL (1.4-4.0); Lymphocytes % 7.4 % (21.2-54.2); Mean Corpuscular HGB Conc 34.3 GM/DL (32-36); Mean Corpuscular Hemoglobin 31 PG (27-34); Mean Corpuscular Volume 91.5 FL (87-102); Mean Platelet Volume 10.6 FL (9.6-12.0); Monocytes # 0.4 10*3/uL (0.11-0.8); Monocytes % 3.6 % (1.7-12.7); Neutrophils # 10.8 10*3/uL (1.4-7.4); Neutrophils % 87.3 % (38.7-73.9); Platelet Count 140 T/CUMM (130-400); Red Blood Count 3.31 MC/CUMM (3.8-5.5); Red Cell Distribution Width 13.6 % (9.3-17.3); White Blood Count 12.4 T/CUMM (4-12)
[2016-11-16 14:06] LABS: ABG Base Excess -2.9 MMOL/L (-2.5-2.5); ABG Oxygen Saturation 97.3 % (95-100); ABG PCO2 41.5 MM HG (35-48); ABG PH 7.344 (7.35-7.45); ABG PO2 98.9 MM HG (80-95); ABG TCO2 20.6 MMOL/L (23-27); Glucose Heart Surgery 140 MG/DL (74-106); Hematocrit Heart Surgery 32.3 PERCENT (42-52); Hemoglobin Heart Surgery 10.5 G/DL (14.0-18.0); Potassium Heart/CVR 4.7 MMOL/L (3.5-5.1)
[2016-11-16] MEDS: INSULIN REGULAR DRIP 100 ML IV SCH ×2 (14:12→17:10)
[2016-11-16 14:14] LABS: INR 1.1; Partial Thromboplastin Time 30.8 SECS (0-40)
[2016-11-16 16:48] LABS: ABG Base Excess -1.9 MMOL/L (-2.5-2.5); ABG HCO3 22.8 MMOL/L (20-26); ABG Oxygen Saturation 95.6 % (95-100); ABG PCO2 37.6 MM HG (35-48); ABG PH 7.389 (7.35-7.45); ABG PO2 80.1 MM HG (80-95); ABG TCO2 20.3 MMOL/L (23-27); Glucose Heart Surgery 172 MG/DL (74-106); Hematocrit Heart Surgery 34.7 PERCENT (42-52); Hemoglobin Heart Surgery 11.3 G/DL (14.0-18.0); Potassium Heart/CVR 4.6 MMOL/L (3.5-5.1)
[2016-11-16] MEDS: POTASSIUM CHLORIDE RIDER 10 MEQ in PREMIX 1 EACH IV PRN (17:00)
[2016-11-16] MEDS ORDERED: ALBUMIN 25% 25 GM/100 ML VIAL IV ONE (17:27)
[2016-11-16] MEDS ORDERED: methylPREDNISolone SOD SUC 1,000 MG/8 ML VIAL ONE (17:29)
[2016-11-16] MEDS ORDERED: HEPARIN 10,000 UNIT/10 ML VIAL ONE (17:29)
[2016-11-16] MEDS ORDERED: PROTAMINE SULFATE 250 MG/25 ML VIAL IV ONE (17:29)
[2016-11-16] MEDS ORDERED: DEXTROSE 5% KCL 20 MEQ 20 MEQ/1,000 ML BAG IV ONE (17:29)
[2016-11-16] MEDS ORDERED: MANNITOL 12.5 GM/50 ML VIAL IV ONE (17:29)
[2016-11-16] MEDS ORDERED: SODIUM BICARBONATE 50 MEQ/50 ML SYRINGE IV ONE (17:29)
[2016-11-16] MEDS ORDERED: MAGNESIUM SULFATE 1 GM/2 ML VIAL ONE (17:29)
[2016-11-16] MEDS ORDERED: PHENYLEPHRINE 50 MG/5 ML VIAL ONE (17:30)
[2016-11-16] MEDS ORDERED: PROTAMINE SULFATE 50 MG/5 ML VIAL IV ONE (17:30)
[2016-11-16 17:53] LABS: ABG Base Excess -2.4 MMOL/L (-2.5-2.5); ABG HCO3 22.4 MMOL/L (20-26); ABG Oxygen Saturation 95.9 % (95-100); ABG PCO2 37.1 MM HG (35-48); ABG PH 7.386 (7.35-7.45); ABG PO2 79.7 MM HG (80-95); ABG TCO2 20.1 MMOL/L (23-27); Glucose Heart Surgery 181 MG/DL (74-106); Hematocrit Heart Surgery 33.1 PERCENT (42-52); Hemoglobin Heart Surgery 10.7 G/DL (14.0-18.0); Potassium Heart/CVR 4.5 MMOL/L (3.5-5.1)
[2016-11-16] MEDS: CEFUROXIME INJ 1,500 MG in SODIUM CHLORIDE 0.9% 100 ML IV SCH (19:15)
[2016-11-16 19:20] LABS: ABG Base Excess -2.2 MMOL/L (-2.5-2.5); ABG HCO3 22.6 MMOL/L (20-26); ABG Oxygen Saturation 95.5 % (95-100); ABG PCO2 35.2 MM HG (35-48); ABG PH 7.405 (7.35-7.45); ABG PO2 75.9 MM HG (80-95); ABG TCO2 19.8 MMOL/L (23-27); Glucose Heart Surgery 180 MG/DL (74-106); Hematocrit Heart Surgery 33.1 PERCENT (42-52); Hemoglobin Heart Surgery 10.7 G/DL (14.0-18.0); Potassium Heart/CVR 4.2 MMOL/L (3.5-5.1)
[2016-11-16 20:12] LABS: CKMB % 6.1 %
[2016-11-16 20:15] LABS: Troponin I Only 4.92 NG/ML (0.00-0.045)
[2016-11-16 21:30] LABS: ABG Base Excess -6.2 MMOL/L (-2.5-2.5); ABG HCO3 19.3 MMOL/L (20-26); ABG Oxygen Saturation 93.4 % (95-100); ABG PCO2 35.8 MM HG (35-48); ABG PH 7.334 (7.35-7.45); ABG PO2 71.5 MM HG (80-95); ABG TCO2 17.5 MMOL/L (23-27); Glucose Heart Surgery 171 MG/DL (74-106); Hematocrit Heart Surgery 31.1 PERCENT (42-52); Hemoglobin Heart Surgery 10.1 G/DL (14.0-18.0); Potassium Heart/CVR 4.5 MMOL/L (3.5-5.1)
[2016-11-16] MEDS ORDERED: FUROSEMIDE 40 MG/4 ML VIAL IV ONE (22:09)
[2016-11-16 23:12] LABS: ABG Base Excess -4.5 MMOL/L (-2.5-2.5); ABG HCO3 20.6 MMOL/L (20-26); ABG Oxygen Saturation 93.8 % (95-100); ABG PCO2 36.2 MM HG (35-48); ABG PH 7.359 (7.35-7.45); ABG PO2 71.7 MM HG (80-95); ABG TCO2 18.9 MMOL/L (23-27); Glucose Heart Surgery 144 MG/DL (74-106); Hematocrit Heart Surgery 28.4 PERCENT (42-52); Hemoglobin Heart Surgery 9.1 G/DL (14.0-18.0)
[2016-11-16] MEDS: MORPHINE 2 MG/1 ML SYRINGE IV PRN (23:56)
[2016-11-17] MEDS: MORPHINE 2 MG/1 ML SYRINGE IV PRN ×2 (00:30→04:05)
[2016-11-17 00:41] LABS: ABG Base Excess -2.7 MMOL/L (-2.5-2.5); ABG HCO3 22.1 MMOL/L (20-26); ABG Oxygen Saturation 94.1 % (95-100); ABG PCO2 36.5 MM HG (35-48); ABG PH 7.386 (7.35-7.45); ABG PO2 71.2 MM HG (80-95); Glucose Heart Surgery 134 MG/DL (74-106); Hemoglobin Heart Surgery 9.7 G/DL (14.0-18.0); Potassium Heart/CVR 4.2 MMOL/L (3.5-5.1)
--- NOTE | 2016-11-17 01:13 | Cardiology Progress Note ---
Cardiology - PN: Subj Interval history: Cardiology note Postop day #1 three-vessel CABG with WARD graft to LAD, vein graft to OM, vein graft to right coronary. Preop EF 45-50%. Patient alert and responsive. Telemetry shows sinus rhythm 85-90 Blood pressure 96/56 Cardiac output 7.2 cardiac index 3.4 PA pressure 29/15 Chest tube output 350 cc today Making good urine Plan Insulin drip Follow chest tube output EKG pending Exam (Progress Note) - Constitutional Vitals: Period Temp Pulse Resp BP Sys/Leyva Pulse Ox Last 24 Hr 97.8 F-99.9 F 84-96 10- 82-162/29-87 93-100 Result/EKG - Labs CBC & BMP: 11/16/16 13:55 11/16/16 12:05 Labs: Laboratory Results - last 24 hr 11/15/16 11/16/16 11/16/16 14:36 04:05 05:52 WBC RBC Hgb Hct MCV MCH MCHC RDW Plt Count MPV Neut % (Auto) Lymph % (Auto) [place] % (Auto) Eos % (Auto) Baso % (Auto) Neut # (Auto) Lymph # (Auto) [place] # (Auto) Eos # (Auto) Baso # (Auto) Immature Gran % Nucleated RBC % Immature Gran # Nucleated RBCs # Immature Plt Fraction INR PT Patient/Control Mix Circ Anticoag PTT Patient Temperature ABG pH ABG pH at Pt Temp ABG pCO2 ABG pCO2 at Pt Temp ABG pO2 ABG pO2 at Pt Temp ABG HCO3 ABG Total CO2 ABG O2 Saturation ABG Base Excess ABG Sodium VBG pH VBG pCO2 VBG pO2 VBG HCO3 VBG Total CO2 VBG O2 Saturation VBG Base Excess Hemoglobin Hematocrit Ionized Calcium FiO2 Sodium 142 Potassium 4.4 Chloride 108 H Carbon Dioxide 27 Anion Gap 11.4 BUN 21 H Creatinine 1.50 H GFR Calculation 60 BUN/Creatinine Ratio 14.00 Glucose 91 POC Glucose 77 Calculated Osmolality 285.1 Calcium 9.3 Venous Ioniz Calcium Magnesium Total Bilirubin AST ALT Alkaline Phosphatase Total Creatine Kinase CK-MB (CK-2) CK and CKMB Interp Troponin I Total Protein Albumin Globulin Albumin/Globulin Ratio Triglycerides 226 H Cholesterol 217 H LDL Cholesterol 146.0 VLDL Cholesterol 45.2 HDL Cholesterol 30 L Heart Disease Risk Ratio 7.23 Urine Color Urine Appearance Urine pH Ur Specific [place] Urine Protein Urine Glucose (UA) Urine Ketones Urine Blood Urine Nitrate Urine Bilirubin Urine Urobilinogen Urine Leukocytes Urine WBC Urine Mucus Ur Culture Indicated? Blood Type O POSITIVE Antibody Screen Negative Crossmatch See Detail 11/16/16 11/16/16 11/16/16 08:06 08:06 08:07 WBC RBC Hgb Hct MCV MCH MCHC RDW Plt Count 75 L D MPV Neut % (Auto) Lymph % (Auto) [place] % (Auto) Eos % (Auto) Baso % (Auto) Neut # (Auto) Lymph # (Auto) [place] # (Auto) Eos # (Auto) Baso # (Auto) Immature Gran % Nucleated RBC % Immature Gran # Nucleated RBCs # Immature Plt Fraction INR PT Patient/Control Mix Circ Anticoag PTT Patient Temperature 37 ABG pH 7.313 L ABG pH at Pt Temp 7.313 ABG pCO2 45.0 ABG pCO2 at Pt Temp 45.0 ABG pO2 262.3 H ABG pO2 at Pt Temp 262.3 ABG HCO3 22.3 ABG Total CO2 23.7 ABG O2 Saturation 99.2 ABG Base Excess -4.0 L ABG Sodium 140 VBG pH VBG pCO2 VBG pO2 VBG HCO3 VBG Total CO2 VBG O2 Saturation VBG Base Excess Hemoglobin 14.7 Hematocrit 43.0 Ionized Calcium 1.17 L FiO2 Sodium Potassium 3.8 Chloride Carbon Dioxide Anion Gap BUN Creatinine GFR Calculation BUN/Creatinine Ratio Glucose 100 POC Glucose Calculated Osmolality Calcium Venous Ioniz Calcium Magnesium Total Bilirubin AST ALT Alkaline Phosphatase Total Creatine Kinase CK-MB (CK-2) CK and CKMB Interp Troponin I Total Protein Albumin Globulin Albumin/Globulin Ratio Triglycerides Cholesterol LDL Cholesterol VLDL Cholesterol HDL Cholesterol Heart Disease Risk Ratio Urine Color Straw Urine Appearance Clear Urine pH 6.0 Ur Specific [place] 1.010 Urine Protein Negative Urine Glucose (UA) Negative Urine Ketones Negative Urine Blood Negative Urine Nitrate Negative Urine Bilirubin Negative Urine Urobilinogen < 2.0 H Urine Leukocytes Negative Urine WBC <1 Urine Mucus Occasional Ur Culture Indicated? Not indicated Blood Type Antibody Screen Crossmatch 11/16/16 11/16/16 11/16/16 09:05 09:41 11:00 WBC RBC Hgb Hct MCV MCH MCHC RDW Plt Count 113 L D MPV Neut % (Auto) Lymph % (Auto) [place] % (Auto) Eos % (Auto) Baso % (Auto) Neut # (Auto) Lymph # (Auto) [place] # (Auto) Eos # (Auto) Baso # (Auto) Immature Gran % Nucleated RBC % Immature Gran # Nucleated RBCs # Immature Plt Fraction INR PT Patient/Control Mix Circ Anticoag PTT Patient Temperature 37 35 ABG pH ABG pH at Pt Temp 7.323 7.389 ABG pCO2 ABG pCO2 at Pt Temp 47.7 38.6 ABG pO2 ABG pO2 at Pt Temp 46.6 39.3 ABG HCO3 ABG Total CO2 ABG O2 Saturation ABG Base Excess ABG Sodium 132 L 132 L VBG pH 7.323 7.360 VBG pCO2 47.7 42.5 VBG pO2 46.6 H 45.1 H VBG HCO3 22.8 L 22.9 L VBG Total CO2 22.9 21.9 VBG O2 Saturation 79.3 79.4 VBG Base Excess -1.5 L -1.4 L Hemoglobin 9.5 L 10.6 L Hematocrit 29.3 L 32.7 L Ionized Calcium FiO2 21.00 80.00 Sodium Potassium 4.8 5.4 H Chloride Carbon Dioxide Anion Gap BUN Creatinine GFR Calculation BUN/Creatinine Ratio Glucose 283 H 225 H POC Glucose Calculated Osmolality Calcium Venous Ioniz Calcium 0.95 L 1.01 L Magnesium Total Bilirubin AST ALT Alkaline Phosphatase Total Creatine Kinase CK-MB (CK-2) CK and CKMB Interp Troponin I Total Protein Albumin Globulin Albumin/Globulin Ratio Triglycerides Cholesterol LDL Cholesterol VLDL Cholesterol HDL Cholesterol Heart Disease Risk Ratio Urine Color Urine Appearance Urine pH Ur Specific [place] Urine Protein Urine Glucose (UA) Urine Ketones Urine Blood Urine Nitrate Urine Bilirubin Urine Urobilinogen Urine Leukocytes Urine WBC Urine Mucus Ur Culture Indicated? Blood Type Antibody Screen Crossmatch 11/16/16 11/16/16 11/16/16 11:00 12:05 12:05 WBC RBC Hgb Hct MCV MCH MCHC RDW Plt Count MPV Neut % (Auto) Lymph % (Auto) [place] % (Auto) Eos % (Auto) Baso % (Auto) Neut # (Auto) Lymph # (Auto) [place] # (Auto) Eos # (Auto) Baso # (Auto) Immature Gran % Nucleated RBC % Immature Gran # Nucleated RBCs # Immature Plt Fraction INR PT Patient/Control Mix Circ Anticoag PTT Patient Temperature 37 ABG pH 7.324 L 7.317 L ABG pH at Pt Temp 7.324 ABG pCO2 42.8 41.4 ABG pCO2 at Pt Temp 42.8 ABG pO2 96.5 H 91.8 ABG pO2 at Pt Temp 96.5 ABG HCO3 21.3 20.7 ABG Total CO2 20.1 L 22.0 L ABG O2 Saturation 97.1 95.9 ABG Base Excess -3.7 L -5.1 L ABG Sodium 136 VBG pH VBG pCO2 VBG pO2 VBG HCO3 VBG Total CO2 VBG O2 Saturation VBG Base Excess Hemoglobin 11.1 L 12.0 L D Hematocrit 34.3 L 35.0 L Ionized Calcium 1.28 FiO2 Sodium 143 Potassium 4.3 4.3 4.0 Chloride 110 H Carbon Dioxide 23 Anion Gap 14.3 BUN 18 Creatinine 1.40 H GFR Calculation 65 BUN/Creatinine Ratio 12.00 Glucose 170 H 130 H 121 H POC Glucose Calculated Osmolality 288.0 Calcium 7.5 L Venous Ioniz Calcium Magnesium 2.3 Total Bilirubin 0.40 AST 24 ALT 17 Alkaline Phosphatase 74 Total Creatine Kinase CK-MB (CK-2) CK and CKMB Interp Troponin I Total Protein 4.8 L Albumin 2.5 L Globulin 2.3 Albumin/Globulin Ratio 1.0 L Triglycerides Cholesterol LDL Cholesterol VLDL Cholesterol HDL Cholesterol Heart Disease Risk Ratio Urine Color Urine Appearance Urine pH Ur Specific [place] Urine Protein Urine Glucose (UA) Urine Ketones Urine Blood Urine Nitrate Urine Bilirubin Urine Urobilinogen Urine Leukocytes Urine WBC Urine Mucus Ur Culture Indicated? Blood Type Antibody Screen Crossmatch 11/16/16 11/16/16 11/16/16 12:05 13:55 13:55 WBC 12.4 H D RBC 3.31 L D Hgb 10.4 L D Hct 30.3 L MCV 91.5 MCH 31 MCHC 34.3 RDW 13.6 Plt Count 140 D MPV 10.6 Neut % (Auto) 87.3 H Lymph % (Auto) 7.4 L [place] % (Auto) 3.6 Eos % (Auto) 0.7 Baso % (Auto) 0.4 Neut # (Auto) 10.8 H Lymph # (Auto) 0.9 L [place] # (Auto) 0.4 Eos # (Auto) 0.1 Baso # (Auto) 0.1 Immature Gran % 0.6 Nucleated RBC % 0.0 Immature Gran # 0.08 Nucleated RBCs # 0.00 Immature Plt Fraction 0.0 INR 1.1 PT Patient/Control Mix 12.0 Circ Anticoag PTT 30.8 Patient Temperature ABG pH ABG pH at Pt Temp ABG pCO2 ABG pCO2 at Pt Temp ABG pO2 ABG pO2 at Pt Temp ABG HCO3 ABG Total CO2 ABG O2 Saturation ABG Base Excess ABG Sodium VBG pH VBG pCO2 VBG pO2 VBG HCO3 VBG Total CO2 VBG O2 Saturation VBG Base Excess Hemoglobin Hematocrit Ionized Calcium FiO2 Sodium Potassium Chloride Carbon Dioxide Anion Gap BUN Creatinine GFR Calculation BUN/Creatinine Ratio Glucose POC Glucose Calculated Osmolality Calcium Venous Ioniz Calcium Magnesium Total Bilirubin AST ALT Alkaline Phosphatase Total Creatine Kinase 183 CK-MB (CK-2) 13.0 H CK and CKMB Interp 7.1 Troponin I 2.970 H Total Protein Albumin Globulin Albumin/Globulin Ratio Triglycerides Cholesterol LDL Cholesterol VLDL Cholesterol HDL Cholesterol Heart Disease Risk Ratio Urine Color Urine Appearance Urine pH Ur Specific [place] Urine Protein Urine Glucose (UA) Urine Ketones Urine Blood Urine Nitrate Urine Bilirubin Urine Urobilinogen Urine Leukocytes Urine WBC Urine Mucus Ur Culture Indicated? Blood Type Antibody Screen Crossmatch 11/16/16 11/16/16 11/16/16 13:55 16:45 17:48 WBC RBC Hgb Hct MCV MCH MCHC RDW Plt Count MPV Neut % (Auto) Lymph % (Auto) [place] % (Auto) Eos % (Auto) Baso % (Auto) Neut # (Auto) Lymph # (Auto) [place] # (Auto) Eos # (Auto) Baso # (Auto) Immature Gran % Nucleated RBC % Immature Gran # Nucleated RBCs # Immature Plt Fraction INR PT Patient/Control Mix Circ Anticoag PTT Patient Temperature ABG pH 7.344 L 7.389 7.386 ABG pH at Pt Temp ABG pCO2 41.5 37.6 37.1 ABG pCO2 at Pt Temp ABG pO2 98.9 H 80.1 79.7 L ABG pO2 at Pt Temp ABG HCO3 22.0 22.8 22.4 ABG Total CO2 20.6 L 20.3 L 20.1 L ABG O2 Saturation 97.3 95.6 95.9 ABG Base Excess -2.9 L -1.9 -2.4 ABG Sodium VBG pH VBG pCO2 VBG pO2 VBG HCO3 VBG Total CO2 VBG O2 Saturation VBG Base Excess Hemoglobin 10.5 L 11.3 L 10.7 L Hematocrit 32.3 L 34.7 L 33.1 L Ionized Calcium FiO2 Sodium Potassium 4.7 4.6 4.5 Chloride Carbon Dioxide Anion Gap BUN Creatinine GFR Calculation BUN/Creatinine Ratio Glucose 140 H 172 H 181 H POC Glucose Calculated Osmolality Calcium Venous Ioniz Calcium Magnesium Total Bilirubin AST ALT Alkaline Phosphatase Total Creatine Kinase CK-MB (CK-2) CK and CKMB Interp Troponin I Total Protein Albumin Globulin Albumin/Globulin Ratio Triglycerides Cholesterol LDL Cholesterol VLDL Cholesterol HDL Cholesterol Heart Disease Risk Ratio Urine Color Urine Appearance Urine pH Ur Specific [place] Urine Protein Urine Glucose (UA) Urine Ketones Urine Blood Urine Nitrate Urine Bilirubin Urine Urobilinogen Urine Leukocytes Urine WBC Urine Mucus Ur Culture Indicated? Blood Type Antibody Screen Crossmatch 11/16/16 11/16/16 11/16/16 18:15 19:16 19:16 WBC RBC Hgb Hct MCV MCH MCHC RDW Plt Count MPV Neut % (Auto) Lymph % (Auto) [place] % (Auto) Eos % (Auto) Baso % (Auto) Neut # (Auto) Lymph # (Auto) [place] # (Auto) Eos # (Auto) Baso # (Auto) Immature Gran % Nucleated RBC % Immature Gran # Nucleated RBCs # Immature Plt Fraction INR PT Patient/Control Mix Circ Anticoag PTT Patient Temperature ABG pH 7.405 ABG pH at Pt Temp ABG pCO2 35.2 ABG pCO2 at Pt Temp ABG pO2 75.9 L ABG pO2 at Pt Temp ABG HCO3 22.6 ABG Total CO2 19.8 L ABG O2 Saturation 95.5 ABG Base Excess -2.2 ABG Sodium VBG pH VBG pCO2 VBG pO2 VBG HCO3 VBG Total CO2 VBG O2 Saturation VBG Base Excess Hemoglobin 10.7 L Hematocrit 33.1 L Ionized Calcium FiO2 Sodium Potassium 4.2 Chloride Carbon Dioxide Anion Gap BUN Creatinine GFR Calculation BUN/Creatinine Ratio Glucose 180 H POC Glucose 187 H Calculated Osmolality Calcium Venous Ioniz Calcium Magnesium Total Bilirubin AST ALT Alkaline Phosphatase Total Creatine Kinase 258 D CK-MB (CK-2) 15.7 H CK and CKMB Interp 6.1 Troponin I 4.920 H D Total Protein Albumin Globulin Albumin/Globulin Ratio Triglycerides Cholesterol LDL Cholesterol VLDL Cholesterol HDL Cholesterol Heart Disease Risk Ratio Urine Color Urine Appearance Urine pH Ur Specific [place] Urine Protein Urine Glucose (UA) Urine Ketones Urine Blood Urine Nitrate Urine Bilirubin Urine Urobilinogen Urine Leukocytes Urine WBC Urine Mucus Ur Culture Indicated? Blood Type Antibody Screen Crossmatch 11/16/16 11/16/16 11/17/16 21:20 22:57 00:39 WBC RBC Hgb Hct MCV MCH MCHC RDW Plt Count MPV Neut % (Auto) Lymph % (Auto) [place] % (Auto) Eos % (Auto) Baso % (Auto) Neut # (Auto) Lymph # (Auto) [place] # (Auto) Eos # (Auto) Baso # (Auto) Immature Gran % Nucleated RBC % Immature Gran # Nucleated RBCs # Immature Plt Fraction INR PT Patient/Control Mix Circ Anticoag PTT Patient Temperature ABG pH 7.334 L 7.359 7.386 ABG pH at Pt Temp ABG pCO2 35.8 36.2 36.5 ABG pCO2 at Pt Temp ABG pO2 71.5 L 71.7 L 71.2 L ABG pO2 at Pt Temp ABG HCO3 19.3 L 20.6 22.1 ABG Total CO2 17.5 L 18.9 L 20.0 L ABG O2 Saturation 93.4 L 93.8 L 94.1 L ABG Base Excess -6.2 L -4.5 L -2.7 L ABG Sodium VBG pH VBG pCO2 VBG pO2 VBG HCO3 VBG Total CO2 VBG O2 Saturation VBG Base Excess Hemoglobin 10.1 L 9.1 L 9.7 L Hematocrit 31.1 L 28.4 L 30.0 L Ionized Calcium FiO2 Sodium Potassium 4.5 4.0 4.2 Chloride Carbon Dioxide Anion Gap BUN Creatinine GFR Calculation BUN/Creatinine Ratio Glucose 171 H 144 H 134 H POC Glucose Calculated Osmolality Calcium Venous Ioniz Calcium Magnesium Total Bilirubin AST ALT Alkaline Phosphatase Total Creatine Kinase CK-MB (CK-2) CK and CKMB Interp Troponin I Total Protein Albumin Globulin Albumin/Globulin Ratio Triglycerides Cholesterol LDL Cholesterol VLDL Cholesterol HDL Cholesterol Heart Disease Risk Ratio Urine Color Urine Appearance Urine pH Ur Specific [place] Urine Protein Urine Glucose (UA) Urine Ketones Urine Blood Urine Nitrate Urine Bilirubin Urine Urobilinogen Urine Leukocytes Urine WBC Urine Mucus Ur Culture Indicated? Blood Type Antibody Screen Crossmatch Quality Measures - VTE Contraindication to Pharmacological VTE Prophylaxis: High Risk of Bleeding
[2016-11-17 02:36] LABS: ABG Base Excess -1.4 MMOL/L (-2.5-2.5); ABG HCO3 23.1 MMOL/L (20-26); ABG PCO2 37.4 MM HG (35-48); ABG PH 7.398 (7.35-7.45); ABG PO2 55.2 MM HG (80-95); ABG TCO2 21.2 MMOL/L (23-27); Glucose Heart Surgery 120 MG/DL (74-106); Hemoglobin Heart Surgery 9.4 G/DL (14.0-18.0); Potassium Heart/CVR 4.4 MMOL/L (3.5-5.1)
[2016-11-17 02:46] LABS: Basophils % 0.1 % (0.0-0.8); Hematocrit 27.4 VOL% (42.0-52.0); Hemoglobin 9.4 GM/DL (14.0-18.0); Immature Granulocytes % 0.6 %; Immature Granulocytes Absolute 0.08 #; Lymphocytes # 0.7 10*3/uL (1.4-4.0); Lymphocytes % 5.1 % (21.2-54.2); Mean Corpuscular HGB Conc 34.3 GM/DL (32-36); Mean Corpuscular Hemoglobin 31 PG (27-34); Mean Platelet Volume 10.9 FL (9.6-12.0); Monocytes # 0.6 10*3/uL (0.11-0.8); Monocytes % 4.3 % (1.7-12.7); Neutrophils # 12.5 10*3/uL (1.4-7.4); Neutrophils % 89.9 % (38.7-73.9); Platelet Count 144 T/CUMM (130-400); Red Blood Count 3.01 MC/CUMM (3.8-5.5); Red Cell Distribution Width 13.9 % (9.3-17.3); White Blood Count 13.9 T/CUMM (4-12)
[2016-11-17 03:11] LABS: Albumin 3.3 G/DL (3.4-5.0); Bilirubin,Direct 0.1 MG/DL (0.0-0.20); Bilirubin,Total 0.6 MG/DL (0.2-1.0); Calcium 7.7 MG/DL (8.5-10.1); Magnesium 2.2 MG/DL (1.8-2.4); Osmolality,Calculated 295.6 MOS/KG (273-304); Potassium 4.5 MMOL/L (3.5-5.1); Total Protein 5.5 G/DL (6.4-8.3)
[2016-11-17] MEDS: POTASSIUM CHLORIDE RIDER 10 MEQ in PREMIX 1 EACH IV PRN (05:33)
[2016-11-17 06:34] LABS: ABG Base Excess -1.3 MMOL/L (-2.5-2.5); ABG HCO3 23.1 MMOL/L (20-26); ABG Oxygen Saturation 89.5 % (95-100); ABG PCO2 37.9 MM HG (35-48); ABG PH 7.395 (7.35-7.45); ABG PO2 57.7 MM HG (80-95); ABG TCO2 20.2 MMOL/L (23-27); Glucose Heart Surgery 113 MG/DL (74-106); Hematocrit Heart Surgery 41.7 PERCENT (42-52); Hemoglobin Heart Surgery 13.6 G/DL (14.0-18.0); Potassium Heart/CVR 4.3 MMOL/L (3.5-5.1)
[2016-11-17] MEDS: POTASSIUM CHLORIDE RIDER 20 MEQ in PREMIX 1 EACH IV PRN (06:46)
[2016-11-17] MEDS: CEFUROXIME INJ 1,500 MG in SODIUM CHLORIDE 0.9% 100 ML IV SCH (07:15)
--- NOTE | 2016-11-17 07:35 | EKG Report ---
Stationary ECG Study [facility] Test Date: 11/17/2016 7:34:01 AM Pat Name: NATALY DOLAN Department: Room: 104 Gender: M [employer] In[employer]: QUOC : 1955 Requested by: Ramy Miller Order Number: [id number] Zhou MD: DESTINY HUI Intervals [place] Rate: 87 P: 12 LA: 152 QRS: 14 QRSD: 85 T: 57 QT: 346 QTc: 390 Interpretive Statements SINUS RHYTHM NONSPECIFIC T-WAVE ABNORMALITY Electronically Signed On 11-18-16 16:55:38 CDT by DESTINY HUI [email or web address]
[2016-11-17] MEDS ORDERED: INSULIN REGULAR 100 UNIT/ML SUBCUT SCH (08:00)
[2016-11-17 08:27] LABS: CKMB % 5.5 %
[2016-11-17 08:29] LABS: Troponin I Only 6.51 NG/ML (0.00-0.045)
--- NOTE | 2016-11-17 08:46 | Cardiothoracic Progress Note ---
Cardiothoracic Subjective Interval history: Patient is awake alert and extubated. Vital signs have been stable through the night and cardiac output is greater than 5 L a minute this morning. Blood pressure and heart rate have been stable. Blood gases are satisfactory although he does have a chronic hypoxemia most likely related to cigarette smoking. Chest x-ray is pending this morning. Urine output has been satisfactory and his creatinine is 1.9 which is up slightly from his preoperative level. Chest tube output is minimal and his chest tubes have been discontinued and I believe he will be ready for transfer later this morning. Exam (Progress Note) - Constitutional Vitals: Period Temp Pulse Resp BP Sys/Leyva Pulse Ox Last 24 Hr 97.9 F-99.9 F 85-96 10- 82-148/29-85 88-100 Result/EKG - Labs CBC & BMP: 11/17/16 02:25 11/17/16 02:25 Labs: Laboratory Results - last 24 hr 11/15/16 11/16/16 11/16/16 14:36 09:05 09:41 WBC RBC Hgb Hct MCV MCH MCHC RDW Plt Count MPV Neut % (Auto) Lymph % (Auto) [place] % (Auto) Eos % (Auto) Baso % (Auto) Neut # (Auto) Lymph # (Auto) [place] # (Auto) Eos # (Auto) Baso # (Auto) Immature Gran % Nucleated RBC % Immature Gran # Nucleated RBCs # Immature Plt Fraction INR PT Patient/Control Mix Circ Anticoag PTT Patient Temperature 37 35 ABG pH ABG pH at Pt Temp 7.323 7.389 ABG pCO2 ABG pCO2 at Pt Temp 47.7 38.6 ABG pO2 ABG pO2 at Pt Temp 46.6 39.3 ABG HCO3 ABG Total CO2 ABG O2 Saturation ABG Base Excess ABG Sodium 132 L 132 L VBG pH 7.323 7.360 VBG pCO2 47.7 42.5 VBG pO2 46.6 H 45.1 H VBG HCO3 22.8 L 22.9 L VBG Total CO2 22.9 21.9 VBG O2 Saturation 79.3 79.4 VBG Base Excess -1.5 L -1.4 L Hemoglobin 9.5 L 10.6 L Hematocrit 29.3 L 32.7 L Potassium 4.8 5.4 H Glucose 283 H 225 H Ionized Calcium FiO2 21.00 80.00 Sodium Chloride Carbon Dioxide Anion Gap BUN Creatinine GFR Calculation BUN/Creatinine Ratio POC Glucose Calculated Osmolality Calcium Venous Ioniz Calcium 0.95 L 1.01 L Magnesium Total Bilirubin Direct Bilirubin AST ALT Alkaline Phosphatase Total Creatine Kinase CK-MB (CK-2) CK and CKMB Interp Troponin I Total Protein Albumin Globulin Albumin/Globulin Ratio Blood Type O POSITIVE Antibody Screen Negative Crossmatch See Detail 11/16/16 11/16/16 11/16/16 11:00 11:00 12:05 WBC RBC Hgb Hct MCV MCH MCHC RDW Plt Count 113 L D MPV Neut % (Auto) Lymph % (Auto) [place] % (Auto) Eos % (Auto) Baso % (Auto) Neut # (Auto) Lymph # (Auto) [place] # (Auto) Eos # (Auto) Baso # (Auto) Immature Gran % Nucleated RBC % Immature Gran # Nucleated RBCs # Immature Plt Fraction INR PT Patient/Control Mix Circ Anticoag PTT Patient Temperature 37 ABG pH 7.324 L ABG pH at Pt Temp 7.324 ABG pCO2 42.8 ABG pCO2 at Pt Temp 42.8 ABG pO2 96.5 H ABG pO2 at Pt Temp 96.5 ABG HCO3 21.3 ABG Total CO2 20.1 L ABG O2 Saturation 97.1 ABG Base Excess -3.7 L ABG Sodium 136 VBG pH VBG pCO2 VBG pO2 VBG HCO3 VBG Total CO2 VBG O2 Saturation VBG Base Excess Hemoglobin 11.1 L Hematocrit 34.3 L Potassium 4.3 4.3 Glucose 170 H 130 H Ionized Calcium 1.28 FiO2 Sodium 143 Chloride 110 H Carbon Dioxide 23 Anion Gap 14.3 BUN 18 Creatinine 1.40 H GFR Calculation 65 BUN/Creatinine Ratio 12.00 POC Glucose Calculated Osmolality 288.0 Calcium 7.5 L Venous Ioniz Calcium Magnesium 2.3 Total Bilirubin 0.40 Direct Bilirubin AST 24 ALT 17 Alkaline Phosphatase 74 Total Creatine Kinase CK-MB (CK-2) CK and CKMB Interp Troponin I Total Protein 4.8 L Albumin 2.5 L Globulin 2.3 Albumin/Globulin Ratio 1.0 L Blood Type Antibody Screen Crossmatch 11/16/16 11/16/16 11/16/16 12:05 12:05 13:55 WBC 12.4 H D RBC 3.31 L D Hgb 10.4 L D Hct 30.3 L MCV 91.5 MCH 31 MCHC 34.3 RDW 13.6 Plt Count 140 D MPV 10.6 Neut % (Auto) 87.3 H Lymph % (Auto) 7.4 L [place] % (Auto) 3.6 Eos % (Auto) 0.7 Baso % (Auto) 0.4 Neut # (Auto) 10.8 H Lymph # (Auto) 0.9 L [place] # (Auto) 0.4 Eos # (Auto) 0.1 Baso # (Auto) 0.1 Immature Gran % 0.6 Nucleated RBC % 0.0 Immature Gran # 0.08 Nucleated RBCs # 0.00 Immature Plt Fraction 0.0 INR PT Patient/Control Mix Circ Anticoag PTT Patient Temperature ABG pH 7.317 L ABG pH at Pt Temp ABG pCO2 41.4 ABG pCO2 at Pt Temp ABG pO2 91.8 ABG pO2 at Pt Temp ABG HCO3 20.7 ABG Total CO2 22.0 L ABG O2 Saturation 95.9 ABG Base Excess -5.1 L ABG Sodium VBG pH VBG pCO2 VBG pO2 VBG HCO3 VBG Total CO2 VBG O2 Saturation VBG Base Excess Hemoglobin 12.0 L D Hematocrit 35.0 L Potassium 4.0 Glucose 121 H Ionized Calcium FiO2 Sodium Chloride Carbon Dioxide Anion Gap BUN Creatinine GFR Calculation BUN/Creatinine Ratio POC Glucose Calculated Osmolality Calcium Venous Ioniz Calcium Magnesium Total Bilirubin Direct Bilirubin AST ALT Alkaline Phosphatase Total Creatine Kinase 183 CK-MB (CK-2) 13.0 H CK and CKMB Interp 7.1 Troponin I 2.970 H Total Protein Albumin Globulin Albumin/Globulin Ratio Blood Type Antibody Screen Crossmatch 11/16/16 11/16/16 11/16/16 13:55 13:55 16:45 WBC RBC Hgb Hct MCV MCH MCHC RDW Plt Count MPV Neut % (Auto) Lymph % (Auto) [place] % (Auto) Eos % (Auto) Baso % (Auto) Neut # (Auto) Lymph # (Auto) [place] # (Auto) Eos # (Auto) Baso # (Auto) Immature Gran % Nucleated RBC % Immature Gran # Nucleated RBCs # Immature Plt Fraction INR 1.1 PT Patient/Control Mix 12.0 Circ Anticoag PTT 30.8 Patient Temperature ABG pH 7.344 L 7.389 ABG pH at Pt Temp ABG pCO2 41.5 37.6 ABG pCO2 at Pt Temp ABG pO2 98.9 H 80.1 ABG pO2 at Pt Temp ABG HCO3 22.0 22.8 ABG Total CO2 20.6 L 20.3 L ABG O2 Saturation 97.3 95.6 ABG Base Excess -2.9 L -1.9 ABG Sodium VBG pH VBG pCO2 VBG pO2 VBG HCO3 VBG Total CO2 VBG O2 Saturation VBG Base Excess Hemoglobin 10.5 L 11.3 L Hematocrit 32.3 L 34.7 L Potassium 4.7 4.6 Glucose 140 H 172 H Ionized Calcium FiO2 Sodium Chloride Carbon Dioxide Anion Gap BUN Creatinine GFR Calculation BUN/Creatinine Ratio POC Glucose Calculated Osmolality Calcium Venous Ioniz Calcium Magnesium Total Bilirubin Direct Bilirubin AST ALT Alkaline Phosphatase Total Creatine Kinase CK-MB (CK-2) CK and CKMB Interp Troponin I Total Protein Albumin Globulin Albumin/Globulin Ratio Blood Type Antibody Screen Crossmatch 11/16/16 11/16/16 11/16/16 17:48 18:15 19:16 WBC RBC Hgb Hct MCV MCH MCHC RDW Plt Count MPV Neut % (Auto) Lymph % (Auto) [place] % (Auto) Eos % (Auto) Baso % (Auto) Neut # (Auto) Lymph # (Auto) [place] # (Auto) Eos # (Auto) Baso # (Auto) Immature Gran % Nucleated RBC % Immature Gran # Nucleated RBCs # Immature Plt Fraction INR PT Patient/Control Mix Circ Anticoag PTT Patient Temperature ABG pH 7.386 ABG pH at Pt Temp ABG pCO2 37.1 ABG pCO2 at Pt Temp ABG pO2 79.7 L ABG pO2 at Pt Temp ABG HCO3 22.4 ABG Total CO2 20.1 L ABG O2 Saturation 95.9 ABG Base Excess -2.4 ABG Sodium VBG pH VBG pCO2 VBG pO2 VBG HCO3 VBG Total CO2 VBG O2 Saturation VBG Base Excess Hemoglobin 10.7 L Hematocrit 33.1 L Potassium 4.5 Glucose 181 H Ionized Calcium FiO2 Sodium Chloride Carbon Dioxide Anion Gap BUN Creatinine GFR Calculation BUN/Creatinine Ratio POC Glucose 187 H Calculated Osmolality Calcium Venous Ioniz Calcium Magnesium Total Bilirubin Direct Bilirubin AST ALT Alkaline Phosphatase Total Creatine Kinase 258 D CK-MB (CK-2) 15.7 H CK and CKMB Interp 6.1 Troponin I 4.920 H D Total Protein Albumin Globulin Albumin/Globulin Ratio Blood Type Antibody Screen Crossmatch 11/16/16 11/16/16 11/16/16 19:16 21:20 22:57 WBC RBC Hgb Hct MCV MCH MCHC RDW Plt Count MPV Neut % (Auto) Lymph % (Auto) [place] % (Auto) Eos % (Auto) Baso % (Auto) Neut # (Auto) Lymph # (Auto) [place] # (Auto) Eos # (Auto) Baso # (Auto) Immature Gran % Nucleated RBC % Immature Gran # Nucleated RBCs # Immature Plt Fraction INR PT Patient/Control Mix Circ Anticoag PTT Patient Temperature ABG pH 7.405 7.334 L 7.359 ABG pH at Pt Temp ABG pCO2 35.2 35.8 36.2 ABG pCO2 at Pt Temp ABG pO2 75.9 L 71.5 L 71.7 L ABG pO2 at Pt Temp ABG HCO3 22.6 19.3 L 20.6 ABG Total CO2 19.8 L 17.5 L 18.9 L ABG O2 Saturation 95.5 93.4 L 93.8 L ABG Base Excess -2.2 -6.2 L -4.5 L ABG Sodium VBG pH VBG pCO2 VBG pO2 VBG HCO3 VBG Total CO2 VBG O2 Saturation VBG Base Excess Hemoglobin 10.7 L 10.1 L 9.1 L Hematocrit 33.1 L 31.1 L 28.4 L Potassium 4.2 4.5 4.0 Glucose 180 H 171 H 144 H Ionized Calcium FiO2 Sodium Chloride Carbon Dioxide Anion Gap BUN Creatinine GFR Calculation BUN/Creatinine Ratio POC Glucose Calculated Osmolality Calcium Venous Ioniz Calcium Magnesium Total Bilirubin Direct Bilirubin AST ALT Alkaline Phosphatase Total Creatine Kinase CK-MB (CK-2) CK and CKMB Interp Troponin I Total Protein Albumin Globulin Albumin/Globulin Ratio Blood Type Antibody Screen Crossmatch 11/17/16 11/17/16 11/17/16 00:39 02:25 02:25 WBC 13.9 H RBC 3.01 L Hgb 9.4 L Hct 27.4 L MCV 91.0 MCH 31 MCHC 34.3 RDW 13.9 Plt Count 144 MPV 10.9 Neut % (Auto) 89.9 H Lymph % (Auto) 5.1 L [place] % (Auto) 4.3 Eos % (Auto) 0.0 Baso % (Auto) 0.1 Neut # (Auto) 12.5 H Lymph # (Auto) 0.7 L [place] # (Auto) 0.6 Eos # (Auto) 0.0 Baso # (Auto) 0.0 Immature Gran % 0.6 Nucleated RBC % 0.0 Immature Gran # 0.08 Nucleated RBCs # 0.00 Immature Plt Fraction 0.0 INR PT Patient/Control Mix Circ Anticoag PTT Patient Temperature ABG pH 7.386 ABG pH at Pt Temp ABG pCO2 36.5 ABG pCO2 at Pt Temp ABG pO2 71.2 L ABG pO2 at Pt Temp ABG HCO3 22.1 ABG Total CO2 20.0 L ABG O2 Saturation 94.1 L ABG Base Excess -2.7 L ABG Sodium VBG pH VBG pCO2 VBG pO2 VBG HCO3 VBG Total CO2 VBG O2 Saturation VBG Base Excess Hemoglobin 9.7 L Hematocrit 30.0 L Potassium 4.2 4.5 Glucose 134 H 114 H Ionized Calcium FiO2 Sodium 146 H Chloride 114 H Carbon Dioxide 24 Anion Gap 12.5 BUN 26 H Creatinine 1.80 H GFR Calculation 48 BUN/Creatinine Ratio 14.00 POC Glucose Calculated Osmolality 295.6 Calcium 7.7 L Venous Ioniz Calcium Magnesium 2.2 Total Bilirubin 0.60 Direct Bilirubin 0.10 AST 37 ALT 21 Alkaline Phosphatase 59 Total Creatine Kinase CK-MB (CK-2) CK and CKMB Interp Troponin I Total Protein 5.5 L Albumin 3.3 L Globulin 2.2 L Albumin/Globulin Ratio 1.5 Blood Type Antibody Screen Crossmatch 11/17/16 11/17/16 11/17/16 02:25 06:15 07:40 WBC RBC Hgb Hct MCV MCH MCHC RDW Plt Count MPV Neut % (Auto) Lymph % (Auto) [place] % (Auto) Eos % (Auto) Baso % (Auto) Neut # (Auto) Lymph # (Auto) [place] # (Auto) Eos # (Auto) Baso # (Auto) Immature Gran % Nucleated RBC % Immature Gran # Nucleated RBCs # Immature Plt Fraction INR PT Patient/Control Mix Circ Anticoag PTT Patient Temperature ABG pH 7.398 7.395 ABG pH at Pt Temp ABG pCO2 37.4 37.9 ABG pCO2 at Pt Temp ABG pO2 55.2 L 57.7 L ABG pO2 at Pt Temp ABG HCO3 23.1 23.1 ABG Total CO2 21.2 L 20.2 L ABG O2 Saturation 88.0 L 89.5 L ABG Base Excess -1.4 -1.3 ABG Sodium VBG pH VBG pCO2 VBG pO2 VBG HCO3 VBG Total CO2 VBG O2 Saturation VBG Base Excess Hemoglobin 9.4 L 13.6 L D Hematocrit 29.0 L 41.7 L Potassium 4.4 4.3 Glucose 120 H 113 H Ionized Calcium FiO2 Sodium Chloride Carbon Dioxide Anion Gap BUN Creatinine GFR Calculation BUN/Creatinine Ratio POC Glucose Calculated Osmolality Calcium Venous Ioniz Calcium Magnesium Total Bilirubin Direct Bilirubin AST ALT Alkaline Phosphatase Total Creatine Kinase 418 H D CK-MB (CK-2) 22.9 H D CK and CKMB Interp 5.5 Troponin I 6.510 H D Total Protein Albumin Globulin Albumin/Globulin Ratio Blood Type Antibody Screen Crossmatch Quality Measures - VTE Contraindication to Pharmacological VTE Prophylaxis: High Risk of Bleeding
--- NOTE | 2016-11-17 10:04 | XRay Report ---
XR chest 1V portable Indication: Status post chest tube removal. Clinical concern for pneumothorax. Comparison: Chest x-ray 11/16/2016. Technique: Portable AP chest was performed. Findings: Left-sided chest tube has been removed. Endotracheal tube has been removed. [place] catheter has been removed. Left IJ central venous catheter has been removed. Mediastinal drain appears to have been removed. Heart size remains mildly enlarged. Sternal wires are stable. Right lung is clear. Minimal opacification of the left cardiophrenic angle is stable may reflect minimal left lower lobe atelectasis. Impression: 1. Multiple tubes have been removed since comparison. No pneumothorax is demonstrated. Mild atelectatic changes of the left lung base are suggested. 11/17/2016 10:00 AM PROCEDURE INTERPRETED AT [facility] DEPARTMENT OF RADIOLOGY Final Report Signed by: Dr. Matteo Cohen
[2016-11-17] MEDS: VALSARTAN/HCTZ 160-12.5 MG TABLET PO SCH (10:24)
[2016-11-17] MEDS: DILTIAZEM CD 180 MG CAPSULE PO SCH (10:24)
[2016-11-17] MEDS: METOPROLOL TARTRATE 25 MG TABLET PO SCH ×2 (10:25→21:13)
[2016-11-17] MEDS: CHLORHEXIDINE 0.12% ORAL RINSE 60 ML BOTTLE SWISH/SPIT SCH ×3 (10:25→23:17)
[2016-11-17] MEDS ORDERED: MAGNESIUM HYDROXIDE SUSP 30 ML UDCUP PO PRN (11:36)
[2016-11-17] MEDS ORDERED: GLUCAGON 1 MG VIAL IM PRN ×2 (11:36)
[2016-11-17] MEDS ORDERED: MAGNESIUM SULF RIDER 4 GM in PREMIX 1 EACH IV PRN (11:36)
[2016-11-17] MEDS ORDERED: SODIUM CHLOR 0.45% KCL 20 MEQ 20 MEQ/1,000 ML BAG IV SCH (11:36)
[2016-11-17] MEDS ORDERED: ACETAMINOPHEN 325 MG TABLET PO PRN (11:36)
[2016-11-17] MEDS ORDERED: DEXTROSE 50% 25 GM/50 ML SYRINGE IV PRN ×2 (11:36)
[2016-11-17] MEDS ORDERED: ONDANSETRON 4 MG/2 ML VIAL IV PRN (11:36)
[2016-11-17] MEDS ORDERED: ALUMINUM/MAGNES/SIMETH MAX STR 30 ML UDCUP PO PRN (11:36)
[2016-11-17] MEDS ORDERED: MORPHINE 2 MG/1 ML SYRINGE IV PRN (11:36)
[2016-11-17] MEDS ORDERED: MAGNESIUM SULF RIDER 2 GM in PREMIX 1 EACH IV PRN (11:36)
[2016-11-17] MEDS ORDERED: POTASSIUM CHLORIDE 20 MEQ TABLET PO PRN (11:36)
[2016-11-17] MEDS: PANTOPRAZOLE 40 MG TABLET PO SCH (12:18)
[2016-11-17] MEDS: ASPIRIN EC 325 MG TABLET PO SCH (12:18)
[2016-11-17] MEDS: FERROUS SULFATE 325 MG TABLET PO SCH (12:18)
[2016-11-17] MEDS: DOCUSATE SODIUM 100 MG CAPSULE PO SCH (12:18)
[2016-11-17] MEDS: oxyCODONE/ACETAMINOPHEN 5-325 MG TABLET PO PRN ×2 (12:21→19:38)
[2016-11-17] MEDS: ALBUTEROL/IPRATROPIUM 3 ML NEB RESP TX SCH ×2 (14:10→18:40)
[2016-11-17] MEDS: ROSUVASTATIN 20 MG TABLET PO SCH (21:13)
[2016-11-18] MEDS: ALBUTEROL/IPRATROPIUM 3 ML NEB RESP TX SCH ×4 (00:48→19:53)
[2016-11-18] MEDS: oxyCODONE/ACETAMINOPHEN 5-325 MG TABLET PO PRN ×5 (02:33→22:04)
[2016-11-18 04:45] LABS: Basophils % 0.1 % (0.0-0.8); Hematocrit 31.2 VOL% (42.0-52.0); Hemoglobin 10.3 GM/DL (14.0-18.0); Immature Granulocytes % 1.2 %; Immature Granulocytes Absolute 0.21 #; Lymphocytes # 1.1 10*3/uL (1.4-4.0); Lymphocytes % 6.3 % (21.2-54.2); Mean Corpuscular Hemoglobin 31 PG (27-34); Mean Corpuscular Volume 92.6 FL (87-102); Mean Platelet Volume 11.1 FL (9.6-12.0); Monocytes # 1.3 10*3/uL (0.11-0.8); Monocytes % 7.5 % (1.7-12.7); Neutrophils # 14.8 10*3/uL (1.4-7.4); Neutrophils % 84.9 % (38.7-73.9); Platelet Count 142 T/CUMM (130-400); Red Blood Count 3.37 MC/CUMM (3.8-5.5); Red Cell Distribution Width 14.8 % (9.3-17.3); White Blood Count 17.4 T/CUMM (4-12)
[2016-11-18 05:22] LABS: Albumin 3.2 G/DL (3.4-5.0); Bilirubin,Direct 0.1 MG/DL (0.0-0.20); Bilirubin,Indirect 0.7 MG/DL (0.0-1.0); Bilirubin,Total 0.8 MG/DL (0.2-1.0); CKMB % 2.6 %; Calcium 7.9 MG/DL (8.5-10.1); Magnesium 2.6 MG/DL (1.8-2.4); Osmolality,Calculated 295.7 MOS/KG (273-304); Potassium 4.5 MMOL/L (3.5-5.1); Total Protein 5.9 G/DL (6.4-8.3)
[2016-11-18 05:28] LABS: Troponin I Only 6.09 NG/ML (0.00-0.045)
[2016-11-18] MEDS ORDERED: FUROSEMIDE 40 MG/4 ML VIAL IV ONE (06:00)
--- NOTE | 2016-11-18 07:57 | XRay Report ---
XR chest 1V portable Indication: Shortness of breath Comparison: Chest x-ray 11/17/2016 Technique: Portable AP chest was performed. Findings: Left IJ central venous catheter is stable. Sternal wires are unchanged. Mild cardiomegaly is stable. Limited inspiration is present and parenchymal opacities within the left cardiophrenic angle remain present and may have minimally worsened. Blunting of the left costophrenic angle is present. Perihilar stranding on the right has probably changed little given the difference in inspiration. Bones and soft tissues are stable. Impression: 1. Left lung base has differential considerations including left lower lobe atelectasis as well as infectious process. Small left-sided pleural effusion is suggested. 2. Perihilar stranding on the right is nonspecific and may reflect atelectatic change given the degree of inspiration and technique utilized. 11/18/2016 7:54 AM PROCEDURE INTERPRETED AT [facility] DEPARTMENT OF RADIOLOGY Final Report Signed by: Dr. Matteo Coehn
[2016-11-18] MEDS: FERROUS SULFATE 325 MG TABLET PO SCH (08:00)
[2016-11-18] MEDS: DILTIAZEM CD 180 MG CAPSULE PO SCH (08:00)
[2016-11-18] MEDS: METOPROLOL TARTRATE 25 MG TABLET PO SCH ×2 (08:00→20:40)
[2016-11-18] MEDS: VALSARTAN/HCTZ 160-12.5 MG TABLET PO SCH (08:00)
[2016-11-18] MEDS: ASPIRIN EC 325 MG TABLET PO SCH (08:01)
[2016-11-18] MEDS: PANTOPRAZOLE 40 MG TABLET PO SCH (08:01)
[2016-11-18] MEDS: DOCUSATE SODIUM 100 MG CAPSULE PO SCH (08:01)
[2016-11-18] MEDS: CHLORHEXIDINE 0.12% ORAL RINSE 60 ML BOTTLE SWISH/SPIT SCH ×2 (08:01→20:41)
--- NOTE | 2016-11-18 08:12 | Cardiothoracic Progress Note ---
Cardiothoracic Subjective Interval history: Patient looks and feels some better. Vital signs are stable and is maintaining normal sinus rhythm. He is gradually increasing his activity as tolerated. He still has a fair amount of chest soreness and I have encouraged him to take pain medicine as needed. We will gradually increase his activities according to routine postoperative protocol. Lab and x-ray looks essentially okay for postoperative day 2. Exam (Progress Note) - Constitutional Vitals: Period Temp Pulse Resp BP Sys/Leyva Pulse Ox Last 24 Hr 97.8 F-99.1 F 71-98 15-20 104-151/64-92 80-94 Result/EKG - Labs CBC & BMP: 11/18/16 04:20 11/18/16 04:20 Labs: Laboratory Results - last 24 hr 11/16/16 11/16/16 11/17/16 20:34 22:07 01:28 WBC RBC Hgb Hct MCV MCH MCHC RDW Plt Count MPV Neut % (Auto) Lymph % (Auto) [place] % (Auto) Eos % (Auto) Baso % (Auto) Neut # (Auto) Lymph # (Auto) [place] # (Auto) Eos # (Auto) Baso # (Auto) Immature Gran % Nucleated RBC % Immature Gran # Nucleated RBCs # Immature Plt Fraction Sodium Potassium Chloride Carbon Dioxide Anion Gap BUN Creatinine GFR Calculation BUN/Creatinine Ratio Glucose POC Glucose 189 H 186 H 135 H Calculated Osmolality Calcium Magnesium Total Bilirubin Direct Bilirubin Indirect Bilirubin AST ALT Alkaline Phosphatase Total Creatine Kinase CK-MB (CK-2) CK and CKMB Interp Troponin I Total Protein Albumin Globulin Albumin/Globulin Ratio 11/17/16 11/17/16 11/17/16 03:17 05:21 07:07 WBC RBC Hgb Hct MCV MCH MCHC RDW Plt Count MPV Neut % (Auto) Lymph % (Auto) [place] % (Auto) Eos % (Auto) Baso % (Auto) Neut # (Auto) Lymph # (Auto) [place] # (Auto) Eos # (Auto) Baso # (Auto) Immature Gran % Nucleated RBC % Immature Gran # Nucleated RBCs # Immature Plt Fraction Sodium Potassium Chloride Carbon Dioxide Anion Gap BUN Creatinine GFR Calculation BUN/Creatinine Ratio Glucose POC Glucose 121 H 109 H 119 H Calculated Osmolality Calcium Magnesium Total Bilirubin Direct Bilirubin Indirect Bilirubin AST ALT Alkaline Phosphatase Total Creatine Kinase CK-MB (CK-2) CK and CKMB Interp Troponin I Total Protein Albumin Globulin Albumin/Globulin Ratio 11/17/16 11/17/16 11/17/16 07:40 08:01 10:31 WBC RBC Hgb Hct MCV MCH MCHC RDW Plt Count MPV Neut % (Auto) Lymph % (Auto) [place] % (Auto) Eos % (Auto) Baso % (Auto) Neut # (Auto) Lymph # (Auto) [place] # (Auto) Eos # (Auto) Baso # (Auto) Immature Gran % Nucleated RBC % Immature Gran # Nucleated RBCs # Immature Plt Fraction Sodium Potassium 4.2 Chloride Carbon Dioxide Anion Gap BUN Creatinine GFR Calculation BUN/Creatinine Ratio Glucose POC Glucose 125 H Calculated Osmolality Calcium Magnesium Total Bilirubin Direct Bilirubin Indirect Bilirubin AST ALT Alkaline Phosphatase Total Creatine Kinase 418 H D CK-MB (CK-2) 22.9 H D CK and CKMB Interp 5.5 Troponin I 6.510 H D Total Protein Albumin Globulin Albumin/Globulin Ratio 11/17/16 11/17/16 11/18/16 11:59 16:18 04:20 WBC 17.4 H RBC 3.37 L Hgb 10.3 L Hct 31.2 L MCV 92.6 MCH 31 MCHC 33.0 RDW 14.8 Plt Count 142 MPV 11.1 Neut % (Auto) 84.9 H Lymph % (Auto) 6.3 L [place] % (Auto) 7.5 Eos % (Auto) 0.0 Baso % (Auto) 0.1 Neut # (Auto) 14.8 H Lymph # (Auto) 1.1 L [place] # (Auto) 1.3 H Eos # (Auto) 0.0 Baso # (Auto) 0.0 Immature Gran % 1.2 Nucleated RBC % 0.0 Immature Gran # 0.21 Nucleated RBCs # 0.00 Immature Plt Fraction 0.0 Sodium Potassium Chloride Carbon Dioxide Anion Gap BUN Creatinine GFR Calculation BUN/Creatinine Ratio Glucose POC Glucose 141 H 116 H Calculated Osmolality Calcium Magnesium Total Bilirubin Direct Bilirubin Indirect Bilirubin AST ALT Alkaline Phosphatase Total Creatine Kinase CK-MB (CK-2) CK and CKMB Interp Troponin I Total Protein Albumin Globulin Albumin/Globulin Ratio 11/18/16 11/18/16 04:20 07:38 WBC RBC Hgb Hct MCV MCH MCHC RDW Plt Count MPV Neut % (Auto) Lymph % (Auto) [place] % (Auto) Eos % (Auto) Baso % (Auto) Neut # (Auto) Lymph # (Auto) [place] # (Auto) Eos # (Auto) Baso # (Auto) Immature Gran % Nucleated RBC % Immature Gran # Nucleated RBCs # Immature Plt Fraction Sodium 145 Potassium 4.5 Chloride 110 H Carbon Dioxide 26 Anion Gap 13.5 BUN 30 H Creatinine 1.60 H GFR Calculation 56 BUN/Creatinine Ratio 18.00 Glucose 126 H POC Glucose 134 H Calculated Osmolality 295.7 Calcium 7.9 L Magnesium 2.6 H Total Bilirubin 0.80 Direct Bilirubin 0.10 Indirect Bilirubin 0.7 AST 43 H ALT 32 Alkaline Phosphatase 64 Total Creatine Kinase 508 H D CK-MB (CK-2) 13.2 H D CK and CKMB Interp 2.6 Troponin I 6.090 H Total Protein 5.9 L Albumin 3.2 L Globulin 2.7 Albumin/Globulin Ratio 1.1 Quality Measures - VTE Contraindication to Pharmacological VTE Prophylaxis: High Risk of Bleeding
--- NOTE | 2016-11-18 09:55 | Cardiology Progress Note ---
Cardiology - PN: Subj Interval history: Cardiology note Postop day #2 three-vessel CABG with WARD graft to LAD, vein graft to OM, vein graft to right coronary Preop EF 45-50%. No temperature. Incision a little sore. telemetry shows steady sinus rhythm. O2 sat 97%. Blood pressure 134/80 Regular rhythm no murmur Incision looks good Decreased breath sounds few rhonchi in the right base Abdomen benign Lab data today White count 17.4 hemoglobin 10.3 hematocrit 31.2 Sodium 145 potassium 4.5 chloride 110 CO2 26 BUN 30 creatinine 1.60 Peak troponin 0.510 Impression Status post three-vessel CABG Preop EF 45-50% Hypertension Hyperlipidemia Plan Increase activity Spirometry Crestor 40 mg daily Metoprolol 25 mg twice daily Diltiazem 180 mg daily Valsartan HCT twice daily Exam (Progress Note) - Constitutional Vitals: Period Temp Pulse Resp BP Sys/Leyva Pulse Ox Last 24 Hr 97.8 F-99.1 F 71-98 15-20 104-151/64-92 80-94 Result/EKG - Labs CBC & BMP: 11/18/16 04:20 11/18/16 04:20 Labs: Laboratory Results - last 24 hr 11/16/16 11/16/16 11/17/16 20:34 22:07 01:28 WBC RBC Hgb Hct MCV MCH MCHC RDW Plt Count MPV Neut % (Auto) Lymph % (Auto) [place] % (Auto) Eos % (Auto) Baso % (Auto) Neut # (Auto) Lymph # (Auto) [place] # (Auto) Eos # (Auto) Baso # (Auto) Immature Gran % Nucleated RBC % Immature Gran # Nucleated RBCs # Immature Plt Fraction Sodium Potassium Chloride Carbon Dioxide Anion Gap BUN Creatinine GFR Calculation BUN/Creatinine Ratio Glucose POC Glucose 189 H 186 H 135 H Calculated Osmolality Calcium Magnesium Total Bilirubin Direct Bilirubin Indirect Bilirubin AST ALT Alkaline Phosphatase Total Creatine Kinase CK-MB (CK-2) CK and CKMB Interp Troponin I Total Protein Albumin Globulin Albumin/Globulin Ratio 11/17/16 11/17/16 11/17/16 03:17 05:21 07:07 WBC RBC Hgb Hct MCV MCH MCHC RDW Plt Count MPV Neut % (Auto) Lymph % (Auto) [place] % (Auto) Eos % (Auto) Baso % (Auto) Neut # (Auto) Lymph # (Auto) [place] # (Auto) Eos # (Auto) Baso # (Auto) Immature Gran % Nucleated RBC % Immature Gran # Nucleated RBCs # Immature Plt Fraction Sodium Potassium Chloride Carbon Dioxide Anion Gap BUN Creatinine GFR Calculation BUN/Creatinine Ratio Glucose POC Glucose 121 H 109 H 119 H Calculated Osmolality Calcium Magnesium Total Bilirubin Direct Bilirubin Indirect Bilirubin AST ALT Alkaline Phosphatase Total Creatine Kinase CK-MB (CK-2) CK and CKMB Interp Troponin I Total Protein Albumin Globulin Albumin/Globulin Ratio 11/17/16 11/17/16 11/17/16 08:01 10:31 11:59 WBC RBC Hgb Hct MCV MCH MCHC RDW Plt Count MPV Neut % (Auto) Lymph % (Auto) [place] % (Auto) Eos % (Auto) Baso % (Auto) Neut # (Auto) Lymph # (Auto) [place] # (Auto) Eos # (Auto) Baso # (Auto) Immature Gran % Nucleated RBC % Immature Gran # Nucleated RBCs # Immature Plt Fraction Sodium Potassium 4.2 Chloride Carbon Dioxide Anion Gap BUN Creatinine GFR Calculation BUN/Creatinine Ratio Glucose POC Glucose 125 H 141 H Calculated Osmolality Calcium Magnesium Total Bilirubin Direct Bilirubin Indirect Bilirubin AST ALT Alkaline Phosphatase Total Creatine Kinase CK-MB (CK-2) CK and CKMB Interp Troponin I Total Protein Albumin Globulin Albumin/Globulin Ratio 11/17/16 11/18/16 11/18/16 16:18 04:20 04:20 WBC 17.4 H RBC 3.37 L Hgb 10.3 L Hct 31.2 L MCV 92.6 MCH 31 MCHC 33.0 RDW 14.8 Plt Count 142 MPV 11.1 Neut % (Auto) 84.9 H Lymph % (Auto) 6.3 L [place] % (Auto) 7.5 Eos % (Auto) 0.0 Baso % (Auto) 0.1 Neut # (Auto) 14.8 H Lymph # (Auto) 1.1 L [place] # (Auto) 1.3 H Eos # (Auto) 0.0 Baso # (Auto) 0.0 Immature Gran % 1.2 Nucleated RBC % 0.0 Immature Gran # 0.21 Nucleated RBCs # 0.00 Immature Plt Fraction 0.0 Sodium 145 Potassium 4.5 Chloride 110 H Carbon Dioxide 26 Anion Gap 13.5 BUN 30 H Creatinine 1.60 H GFR Calculation 56 BUN/Creatinine Ratio 18.00 Glucose 126 H POC Glucose 116 H Calculated Osmolality 295.7 Calcium 7.9 L Magnesium 2.6 H Total Bilirubin 0.80 Direct Bilirubin 0.10 Indirect Bilirubin 0.7 AST 43 H ALT 32 Alkaline Phosphatase 64 Total Creatine Kinase 508 H D CK-MB (CK-2) 13.2 H D CK and CKMB Interp 2.6 Troponin I 6.090 H Total Protein 5.9 L Albumin 3.2 L Globulin 2.7 Albumin/Globulin Ratio 1.1 11/18/16 07:38 WBC RBC Hgb Hct MCV MCH MCHC RDW Plt Count MPV Neut % (Auto) Lymph % (Auto) [place] % (Auto) Eos % (Auto) Baso % (Auto) Neut # (Auto) Lymph # (Auto) [place] # (Auto) Eos # (Auto) Baso # (Auto) Immature Gran % Nucleated RBC % Immature Gran # Nucleated RBCs # Immature Plt Fraction Sodium Potassium Chloride Carbon Dioxide Anion Gap BUN Creatinine GFR Calculation BUN/Creatinine Ratio Glucose POC Glucose 134 H Calculated Osmolality Calcium Magnesium Total Bilirubin Direct Bilirubin Indirect Bilirubin AST ALT Alkaline Phosphatase Total Creatine Kinase CK-MB (CK-2) CK and CKMB Interp Troponin I Total Protein Albumin Globulin Albumin/Globulin Ratio Quality Measures - VTE Contraindication to Pharmacological VTE Prophylaxis: High Risk of Bleeding
[2016-11-18] MEDS: ROSUVASTATIN 20 MG TABLET PO SCH (20:40)
[2016-11-19] MEDS: ALBUTEROL/IPRATROPIUM 3 ML NEB RESP TX SCH ×4 (00:06→19:00)
[2016-11-19 04:08] LABS: Basophils % 0.1 % (0.0-0.8); Eosinophils % 0.1 % (0.00-10.9); Hematocrit 30.3 VOL% (42.0-52.0); Hemoglobin 10.3 GM/DL (14.0-18.0); Immature Granulocytes % 0.7 %; Immature Granulocytes Absolute 0.09 #; Lymphocytes # 1.8 10*3/uL (1.4-4.0); Lymphocytes % 14.2 % (21.2-54.2); Mean Corpuscular Hemoglobin 31 PG (27-34); Mean Corpuscular Volume 90.2 FL (87-102); Mean Platelet Volume 11.2 FL (9.6-12.0); Monocytes % 7.8 % (1.7-12.7); Neutrophils % 77.1 % (38.7-73.9); Platelet Count 145 T/CUMM (130-400); Red Blood Count 3.36 MC/CUMM (3.8-5.5); Red Cell Distribution Width 14.7 % (9.3-17.3); White Blood Count 12.9 T/CUMM (4-12)
[2016-11-19 04:34] LABS: Alanine Aminotransferase 28 U/L (16-61); Albumin 3.2 G/DL (3.4-5.0); Alkaline Phosphatase 65 U/L (45-117); Aspartate Amino Transferase 27 U/L (0-37); Bilirubin,Indirect 0.4 MG/DL (0.0-1.0); Blood Urea Nitrogen 28 MG/DL (7-18); Calcium 8.2 MG/DL (8.5-10.1); Glucose 105 MG/DL (74-106); Magnesium 2.3 MG/DL (1.8-2.4); Osmolality,Calculated 286.3 MOS/KG (273-304); Potassium 3.6 MMOL/L (3.5-5.1); Sodium 141 MMOL/L (136-145); Total Protein 6.2 G/DL (6.4-8.3)
[2016-11-19] MEDS: oxyCODONE/ACETAMINOPHEN 5-325 MG TABLET PO PRN ×3 (05:16→21:37)
--- NOTE | 2016-11-19 07:51 | Anesthesia Post-Op ---
Anesthesia Post OP - Post Ansesthetic Evaluation Patient seen in post op: Yes Resp: within normal limits CV: within normal limits Mental: within normal limits Temp: within normal limits [id number]: within normal limits Nausea and Vomiting: within normal limits Pain: within normal limits
--- NOTE | 2016-11-19 09:01 | XRay Report ---
History: Shortness of breath Date: 11/19/2016 Study: Chest x-ray AP portable Comparison exam: 11/18/2016 The left IJ central line remains in stable position. There is continued cardiomegaly. The mediastinal contours are unchanged in this patient status post prior median sternotomy. The pulmonary vasculature is not engorged. There is some left basilar atelectasis/infiltrate which is slightly increased. There are stable platelike atelectasis in the right lower lung. There is continued mild left pleural effusion. Osseous structures are unchanged. Impression: Minimally increased atelectasis/infiltrate left lung base. Otherwise unchanged PROCEDURE INTERPRETED AT [facility] DEPARTMENT OF RADIOLOGY Final Report Signed by: Dr. Marjan Sim
[2016-11-19] MEDS: VALSARTAN/HCTZ 160-12.5 MG TABLET PO SCH (09:03)
[2016-11-19] MEDS: FERROUS SULFATE 325 MG TABLET PO SCH (09:04)
[2016-11-19] MEDS: METOPROLOL TARTRATE 25 MG TABLET PO SCH (09:04)
[2016-11-19] MEDS: ASPIRIN EC 325 MG TABLET PO SCH (09:04)
[2016-11-19] MEDS: PANTOPRAZOLE 40 MG TABLET PO SCH (09:04)
[2016-11-19] MEDS: DILTIAZEM CD 180 MG CAPSULE PO SCH (09:04)
[2016-11-19] MEDS: CHLORHEXIDINE 0.12% ORAL RINSE 60 ML BOTTLE SWISH/SPIT SCH ×2 (09:04→21:37)
[2016-11-19] MEDS: DOCUSATE SODIUM 100 MG CAPSULE PO SCH (09:04)
--- NOTE | 2016-11-19 09:17 | Cardiothoracic Progress Note ---
Cardiothoracic Subjective Interval history: Patient looks and feels better. His vital signs have been stable and is breathing comfortably. He is ambulating without assistance. We will gradually increase his activities per routine postoperative protocol but overall his progress appears satisfactory. Exam (Progress Note) - Constitutional Vitals: Period Temp Pulse Resp BP Sys/Leyva Pulse Ox Last 24 Hr 97.3 F-99.7 F 16-97 16-20 117-160/59-99 80-97 Result/EKG - Labs CBC & BMP: 11/19/16 03:35 11/19/16 03:35 Labs: Laboratory Results - last 24 hr 11/15/16 11/18/16 11/18/16 14:36 12:08 15:58 WBC RBC Hgb Hct MCV MCH MCHC RDW Plt Count MPV Neut % (Auto) Lymph % (Auto) [place] % (Auto) Eos % (Auto) Baso % (Auto) Neut # (Auto) Lymph # (Auto) [place] # (Auto) Eos # (Auto) Baso # (Auto) Immature Gran % Nucleated RBC % Immature Gran # Nucleated RBCs # Immature Plt Fraction Sodium Potassium Chloride Carbon Dioxide Anion Gap BUN Creatinine GFR Calculation BUN/Creatinine Ratio Glucose POC Glucose 112 H 130 H Calculated Osmolality Calcium Magnesium Total Bilirubin Direct Bilirubin Indirect Bilirubin AST ALT Alkaline Phosphatase Total Creatine Kinase CK-MB (CK-2) Troponin I Total Protein Albumin Globulin Albumin/Globulin Ratio Crossmatch See Detail 11/18/16 11/19/16 11/19/16 22:08 03:35 03:35 WBC 12.9 H RBC 3.36 L Hgb 10.3 L Hct 30.3 L MCV 90.2 MCH 31 MCHC 34.0 RDW 14.7 Plt Count 145 MPV 11.2 Neut % (Auto) 77.1 H Lymph % (Auto) 14.2 L [place] % (Auto) 7.8 Eos % (Auto) 0.1 Baso % (Auto) 0.1 Neut # (Auto) 10.0 H Lymph # (Auto) 1.8 [place] # (Auto) 1.0 H Eos # (Auto) 0.0 Baso # (Auto) 0.0 Immature Gran % 0.7 Nucleated RBC % 0.0 Immature Gran # 0.09 Nucleated RBCs # 0.00 Immature Plt Fraction 0.0 Sodium 141 Potassium 3.6 Chloride 105 Carbon Dioxide 30 Anion Gap 9.6 BUN 28 H Creatinine 1.40 H GFR Calculation 66 BUN/Creatinine Ratio 20.00 Glucose 105 POC Glucose 105 Calculated Osmolality 286.3 Calcium 8.2 L Magnesium 2.3 Total Bilirubin 0.50 Direct Bilirubin 0.10 Indirect Bilirubin 0.4 AST 27 ALT 28 Alkaline Phosphatase 65 Total Creatine Kinase 313 H D CK-MB (CK-2) 3.1 D Troponin I 4.920 H Total Protein 6.2 L Albumin 3.2 L Globulin 3.0 Albumin/Globulin Ratio 1.0 L Crossmatch 11/19/16 07:21 WBC RBC Hgb Hct MCV MCH MCHC RDW Plt Count MPV Neut % (Auto) Lymph % (Auto) [place] % (Auto) Eos % (Auto) Baso % (Auto) Neut # (Auto) Lymph # (Auto) [place] # (Auto) Eos # (Auto) Baso # (Auto) Immature Gran % Nucleated RBC % Immature Gran # Nucleated RBCs # Immature Plt Fraction Sodium Potassium Chloride Carbon Dioxide Anion Gap BUN Creatinine GFR Calculation BUN/Creatinine Ratio Glucose POC Glucose 121 H Calculated Osmolality Calcium Magnesium Total Bilirubin Direct Bilirubin Indirect Bilirubin AST ALT Alkaline Phosphatase Total Creatine Kinase CK-MB (CK-2) Troponin I Total Protein Albumin Globulin Albumin/Globulin Ratio Crossmatch Quality Measures - VTE Contraindication to Pharmacological VTE Prophylaxis: High Risk of Bleeding Specialty Discharge - Follow Up or Referrals
--- NOTE | 2016-11-19 12:28 | Cardiology Progress Note ---
Addendum entered and electronically signed by Zara Coelho NP 11/19/16 12:31 : Patient will need repeat echocardiogram in 90 days. Original Note: <Zara Coelho - Last Filed: 11/19/16 12:13> Assessment and Plan (1) Status post aorto-coronary artery bypass graft Status: Acute Assessment and plan: See plan of care listed below Current Visit: Yes (2) Dyslipidemia Status: Chronic Assessment and plan: See plan of care listed below Current Visit: Yes (3) Coronary artery disease Status: Acute Assessment and plan: See plan of care listed below Current Visit: Yes (4) Essential hypertension Status: Chronic Assessment and plan: See plan of care listed below Current Visit: Yes (5) Tobacco abuse Status: Chronic Assessment and plan: See plan of care listed below Current Visit: Yes (6) Ischemic cardiomyopathy Status: Chronic Assessment and plan: See plan of care listed below. Current Visit: Yes Cardiology - PN: Subj Interval history: Pharmacy Clinical Coordinator: Dr. Olmedo SUMMARY Mr. Salas 61-year-old male patient routinely followed by Dr. Olmedo was admitted for elective heart catheterization November 15, 2016. He has a history of resection of coronary disease and cardiomyopathy. He underwent heart catheterization November 15, 2016 and was noted to have critical disease of the LAD and RCA. Subsequently, Dr. Elena was consulted for probable bypass surgery. He underwent coronary bypass grafting 3 with WARD to LAD, SVG to obtuse marginal and SVG to right coronary artery November 16, 2016. Left heart catheterization impressions noted below. Impression: 1. Left ventricle is normal size of probably left ventricular hypertrophy with a ejection fraction of 45 and at best 50%. 2. LVEDP is normal at 11 mmHg. 3. Aortic valve is probably tricuspid structure without gradient. 4. No sent mitral valve regurgitation is noted. 5. RCA is dominant with 90% mid stenosis. 6. Left main coronary distally has 30-40% stenosis and calcification. 7. Circumflex arteries a small vessel without significant stenosis. 8. LAD gives rise to a large first diagonal/ramus intermedius branch very proximally. There is 80-90% stenosis of the ostium of the LAD involving the ostium of the first diagonal/ramus intermedius. 9. There is high-grade stenosis of the right and left iliac arteries a total occlusion of the left external iliac with reconstitution of the common femoral artery. Right external iliac has 89% stenosis. 10. Left coronary artery is patent and added for bypass surgery. 11. Successful hemostasis the right common femoral artery. NOVEMBER 19 UPDATE Patient was seen and examined on the telemetry unit. He is doing well postoperatively. Today is postop day #3. Surgical incisions are healing well without dehiscence or drainage. Reports that he is ambulating without difficulty. No chest pain, heaviness or tightness. Denies shortness of breath this morning. Oxygen saturation stable. Reports compliance with incentive spirometry. Telemetry has been reviewed and no evidence of dysrhythmias noted. Vital signs are stable. Labs reviewed. Creatinine 1.4 with BUN of 28. Will discuss with Dr. Norris and await her additional recommendations. ASSESSMENT/PLAN 1. CAD, STATUS POST CABG X3, WARD TO LAD, SVG TO OM AND SVG TO RCA - Patient is doing well postoperatively. Continue routine postoperative protocol. Increase activity as tolerated. Incentive is premature encouraged. Continue beta-blockade, lipid-lowering agent, ARB and aspirin. 2. ISCHEMIC CARDIOMYOPTHY - EF 45-50% per [facility]. Continue ARB. Monitor chemistry daily as creatinine has seymour from 1.3-1.4 this hospitalization. Continue beta-blockade. 3. HYPERTENSION - Overall clinically stable. I have increased patient's beta- blockade. Will continue to monitor BP and adjust accordingly. 4. DYSLIPIDEMIA - Lipid panel reviewed. Continue high intensity statin. Lipid panel will need to be repeated in approximately 6 weeks. 5. CURRENT EVERY DAY SMOKER - Smoking cessation encouraged. Exam (Progress Note) - Constitutional Vitals: Period Temp Pulse Resp BP Sys/Leyva Pulse Ox Last 24 Hr 97.3 F-98.8 F 16-97 16-20 125-160/70-99 80-97 Exam: General: Appears well with no apparent distress. Pleasant and cooperative. Appears comfortable. HEENT: PERRL, normocephalic, atraumatic. Mucous membranes moist. No jaundice noted. Conjunctiva moist and clear, sclerae anicteric Neck: No JVD/HJR, no thyromegaly or lymphadenopathy noted. Cardiac: Regular rate and rhythm. Lungs: Clear to auscultation with wheezing. Requiring oxygen via nasal cannula Abdomen: Soft, bowel sounds normoactive. Nontender and nondistended. No abdominal bruit or thrill noted. No masses noted. Extremities: No clubbing, cyanosis noted. No edema noted. Upper extremity pulses 2+. Lower extremity pulses 2+. Capillary refill less than 3 seconds. Right groin soft without bleeding, hematoma and bruit. Skin: No unusual lesions or rashes. No skin breakdown appreciated. Surgical incisions healing well without dehiscence or drainage. Neuro: Awake, alert and oriented 3. Moves all extremities well without hemiparesis or paralysis. No essential tremor is appreciated. Result/EKG - Labs CBC & BMP: 11/19/16 03:35 11/19/16 03:35 Lab Results: I have reviewed the past 24 hour labs Labs: Laboratory Results - last 24 hr 11/15/16 11/18/16 11/18/16 14:36 12:08 15:58 WBC RBC Hgb Hct MCV MCH MCHC RDW Plt Count MPV Neut % (Auto) Lymph % (Auto) [place] % (Auto) Eos % (Auto) Baso % (Auto) Neut # (Auto) Lymph # (Auto) [place] # (Auto) Eos # (Auto) Baso # (Auto) Immature Gran % Nucleated RBC % Immature Gran # Nucleated RBCs # Immature Plt Fraction Sodium Potassium Chloride Carbon Dioxide Anion Gap BUN Creatinine GFR Calculation BUN/Creatinine Ratio Glucose POC Glucose 112 H 130 H Calculated Osmolality Calcium Magnesium Total Bilirubin Direct Bilirubin Indirect Bilirubin AST ALT Alkaline Phosphatase Total Creatine Kinase CK-MB (CK-2) Troponin I Total Protein Albumin Globulin Albumin/Globulin Ratio Crossmatch See Detail 11/18/16 11/19/16 11/19/16 22:08 03:35 03:35 WBC 12.9 H RBC 3.36 L Hgb 10.3 L Hct 30.3 L MCV 90.2 MCH 31 MCHC 34.0 RDW 14.7 Plt Count 145 MPV 11.2 Neut % (Auto) 77.1 H Lymph % (Auto) 14.2 L [place] % (Auto) 7.8 Eos % (Auto) 0.1 Baso % (Auto) 0.1 Neut # (Auto) 10.0 H Lymph # (Auto) 1.8 [place] # (Auto) 1.0 H Eos # (Auto) 0.0 Baso # (Auto) 0.0 Immature Gran % 0.7 Nucleated RBC % 0.0 Immature Gran # 0.09 Nucleated RBCs # 0.00 Immature Plt Fraction 0.0 Sodium 141 Potassium 3.6 Chloride 105 Carbon Dioxide 30 Anion Gap 9.6 BUN 28 H Creatinine 1.40 H GFR Calculation 66 BUN/Creatinine Ratio 20.00 Glucose 105 POC Glucose 105 Calculated Osmolality 286.3 Calcium 8.2 L Magnesium 2.3 Total Bilirubin 0.50 Direct Bilirubin 0.10 Indirect Bilirubin 0.4 AST 27 ALT 28 Alkaline Phosphatase 65 Total Creatine Kinase 313 H D CK-MB (CK-2) 3.1 D Troponin I 4.920 H Total Protein 6.2 L Albumin 3.2 L Globulin 3.0 Albumin/Globulin Ratio 1.0 L Crossmatch 11/19/16 07:21 WBC RBC Hgb Hct MCV MCH MCHC RDW Plt Count MPV Neut % (Auto) Lymph % (Auto) [place] % (Auto) Eos % (Auto) Baso % (Auto) Neut # (Auto) Lymph # (Auto) [place] # (Auto) Eos # (Auto) Baso # (Auto) Immature Gran % Nucleated RBC % Immature Gran # Nucleated RBCs # Immature Plt Fraction Sodium Potassium Chloride Carbon Dioxide Anion Gap BUN Creatinine GFR Calculation BUN/Creatinine Ratio Glucose POC Glucose 121 H Calculated Osmolality Calcium Magnesium Total Bilirubin Direct Bilirubin Indirect Bilirubin AST ALT Alkaline Phosphatase Total Creatine Kinase CK-MB (CK-2) Troponin I Total Protein Albumin Globulin Albumin/Globulin Ratio Crossmatch Quality Measures - VTE Contraindication to Pharmacological VTE Prophylaxis: High Risk of Bleeding Specialty Discharge - Follow Up or Referrals <Evon Lord - Last Filed: 11/19/16 18:15> Cardiology - PN: Subj Interval history: I have personally interviewed and examined the patient, reviewed the chart and discussed medical decision-making with practitioner Meliton. I have read this note and agree with the documentation herein. Exam (Progress Note) - Constitutional Vitals: Period Temp Pulse Resp BP Sys/Leyva Pulse Ox Last 24 Hr 97.3 F-99.9 F 16-97 16-20 125-160/74-99 80-97 Result/EKG - Labs CBC & BMP: 11/19/16 03:35 11/19/16 03:35 Labs: Laboratory Results - last 24 hr 11/15/16 11/18/16 11/19/16 14:36 22:08 03:35 WBC 12.9 H RBC 3.36 L Hgb 10.3 L Hct 30.3 L MCV 90.2 MCH 31 MCHC 34.0 RDW 14.7 Plt Count 145 MPV 11.2 Neut % (Auto) 77.1 H Lymph % (Auto) 14.2 L [place] % (Auto) 7.8 Eos % (Auto) 0.1 Baso % (Auto) 0.1 Neut # (Auto) 10.0 H Lymph # (Auto) 1.8 [place] # (Auto) 1.0 H Eos # (Auto) 0.0 Baso # (Auto) 0.0 Immature Gran % 0.7 Nucleated RBC % 0.0 Immature Gran # 0.09 Nucleated RBCs # 0.00 Immature Plt Fraction 0.0 Sodium Potassium Chloride Carbon Dioxide Anion Gap BUN Creatinine GFR Calculation BUN/Creatinine Ratio Glucose POC Glucose 105 Calculated Osmolality Calcium Magnesium Total Bilirubin Direct Bilirubin Indirect Bilirubin AST ALT Alkaline Phosphatase Total Creatine Kinase CK-MB (CK-2) Troponin I Total Protein Albumin Globulin Albumin/Globulin Ratio Crossmatch See Detail 11/19/16 11/19/16 11/19/16 03:35 07:21 11:25 WBC RBC Hgb Hct MCV MCH MCHC RDW Plt Count MPV Neut % (Auto) Lymph % (Auto) [place] % (Auto) Eos % (Auto) Baso % (Auto) Neut # (Auto) Lymph # (Auto) [place] # (Auto) Eos # (Auto) Baso # (Auto) Immature Gran % Nucleated RBC % Immature Gran # Nucleated RBCs # Immature Plt Fraction Sodium 141 Potassium 3.6 Chloride 105 Carbon Dioxide 30 Anion Gap 9.6 BUN 28 H Creatinine 1.40 H GFR Calculation 66 BUN/Creatinine Ratio 20.00 Glucose 105 POC Glucose 121 H 126 H Calculated Osmolality 286.3 Calcium 8.2 L Magnesium 2.3 Total Bilirubin 0.50 Direct Bilirubin 0.10 Indirect Bilirubin 0.4 AST 27 ALT 28 Alkaline Phosphatase 65 Total Creatine Kinase 313 H D CK-MB (CK-2) 3.1 D Troponin I 4.920 H Total Protein 6.2 L Albumin 3.2 L Globulin 3.0 Albumin/Globulin Ratio 1.0 L Crossmatch 11/19/16 16:16 WBC RBC Hgb Hct MCV MCH MCHC RDW Plt Count MPV Neut % (Auto) Lymph % (Auto) [place] % (Auto) Eos % (Auto) Baso % (Auto) Neut # (Auto) Lymph # (Auto) [place] # (Auto) Eos # (Auto) Baso # (Auto) Immature Gran % Nucleated RBC % Immature Gran # Nucleated RBCs # Immature Plt Fraction Sodium Potassium Chloride Carbon Dioxide Anion Gap BUN Creatinine GFR Calculation BUN/Creatinine Ratio Glucose POC Glucose 121 H Calculated Osmolality Calcium Magnesium Total Bilirubin Direct Bilirubin Indirect Bilirubin AST ALT Alkaline Phosphatase Total Creatine Kinase CK-MB (CK-2) Troponin I Total Protein Albumin Globulin Albumin/Globulin Ratio Crossmatch
[2016-11-19] MEDS: ZALEPLON 5 MG CAPSULE PO PRN (21:37)
[2016-11-19] MEDS: METOPROLOL TARTRATE 50 MG TABLET PO SCH (21:37)
[2016-11-19] MEDS: ROSUVASTATIN 20 MG TABLET PO SCH (21:37)
[2016-11-20] MEDS: ALBUTEROL/IPRATROPIUM 3 ML NEB RESP TX SCH ×4 (00:10→20:36)
[2016-11-20] MEDS: oxyCODONE/ACETAMINOPHEN 5-325 MG TABLET PO PRN ×2 (04:38→11:13)
[2016-11-20 05:40] LABS: Calcium 8.1 MG/DL (8.5-10.1); Magnesium 2.5 MG/DL (1.8-2.4); Osmolality,Calculated 282.4 MOS/KG (273-304); Potassium 3.8 MMOL/L (3.5-5.1)
[2016-11-20] MEDS: DOCUSATE SODIUM 100 MG CAPSULE PO SCH (08:43)
[2016-11-20] MEDS: CHLORHEXIDINE 0.12% ORAL RINSE 60 ML BOTTLE SWISH/SPIT SCH ×2 (08:43→20:39)
[2016-11-20] MEDS: FERROUS SULFATE 325 MG TABLET PO SCH (08:43)
[2016-11-20] MEDS: PANTOPRAZOLE 40 MG TABLET PO SCH (08:43)
[2016-11-20] MEDS: ASPIRIN EC 325 MG TABLET PO SCH (08:43)
[2016-11-20] MEDS: VALSARTAN/HCTZ 160-12.5 MG TABLET PO SCH (08:43)
[2016-11-20] MEDS: DILTIAZEM CD 180 MG CAPSULE PO SCH (08:43)
[2016-11-20] MEDS: METOPROLOL TARTRATE 50 MG TABLET PO SCH ×2 (08:43→20:39)
--- NOTE | 2016-11-20 08:44 | Cardiology Progress Note ---
<Zara Coelho - Last Filed: 11/20/16 08:36> Assessment and Plan (1) Status post aorto-coronary artery bypass graft Status: Acute Assessment and plan: See plan of care listed below Current Visit: Yes (2) Dyslipidemia Status: Chronic Assessment and plan: See plan of care listed below Current Visit: Yes (3) Coronary artery disease Status: Acute Assessment and plan: See plan of care listed below Current Visit: Yes (4) Essential hypertension Status: Chronic Assessment and plan: See plan of care listed below Current Visit: Yes (5) Tobacco abuse Status: Chronic Assessment and plan: See plan of care listed below Current Visit: Yes (6) Ischemic cardiomyopathy Status: Chronic Assessment and plan: See plan of care listed below. Current Visit: Yes Cardiology - PN: Subj Interval history: Global Clinical Leader: Dr. Olmedo SUMMARY Mr. Salas 61-year-old male patient routinely followed by Dr. Olmedo was admitted for elective heart catheterization November 15, 2016. He has a history of resection of coronary disease and cardiomyopathy. He underwent heart catheterization November 15, 2016 and was noted to have critical disease of the LAD and RCA. Subsequently, Dr. Elena was consulted for probable bypass surgery. He underwent coronary bypass grafting 3 with WARD to LAD, SVG to obtuse marginal and SVG to right coronary artery November 16, 2016. Left heart catheterization impressions noted below. Impression: 1. Left ventricle is normal size of probably left ventricular hypertrophy with a ejection fraction of 45 and at best 50%. 2. LVEDP is normal at 11 mmHg. 3. Aortic valve is probably tricuspid structure without gradient. 4. No sent mitral valve regurgitation is noted. 5. RCA is dominant with 90% mid stenosis. 6. Left main coronary distally has 30-40% stenosis and calcification. 7. Circumflex arteries a small vessel without significant stenosis. 8. LAD gives rise to a large first diagonal/ramus intermedius branch very proximally. There is 80-90% stenosis of the ostium of the LAD involving the ostium of the first diagonal/ramus intermedius. 9. There is high-grade stenosis of the right and left iliac arteries a total occlusion of the left external iliac with reconstitution of the common femoral artery. Right external iliac has 89% stenosis. 10. Left coronary artery is patent and added for bypass surgery. 11. Successful hemostasis the right common femoral artery. NOVEMBER 20, 2016 UPDATE Patient was seen and examined on the telemetry unit. He is doing well postoperatively. Today is postop day #4. Surgical incisions are healing well without dehiscence or drainage. Reports that he is ambulating well. PT is seeing patient daily. No chest pain, heaviness or tightness. Denies shortness of breath this morning. However, he reports that he continues to have productive cough. Oxygen saturation stable. Reports compliance with incentive spirometry. Telemetry has been reviewed and no evidence of dysrhythmias noted. Vital signs are stable. Labs reviewed. Creatinine 1.4 with BUN of 24. H&H stable. Will discuss with Dr. Lord and await her additional recommendations. ASSESSMENT/PLAN 1. CAD, STATUS POST CABG X3, WARD TO LAD, SVG TO OM AND SVG TO RCA - Patient is doing well postoperatively. Continue routine postoperative protocol. Increase activity as tolerated. Incentive spirometry encouraged. Continue beta -blockade, lipid-lowering agent, ARB and aspirin. 2. ISCHEMIC CARDIOMYOPTHY - EF 45% per [facility]. Continue ARB. Monitor chemistry daily. Creatinine today unchanged at 1.4. Continue beta-blockade. Patient will need repeat echocardiogram in 90 days. 3. HYPERTENSION - Overall clinically stable. Continue current plan of care. Continue to monitor BP and adjust medications accordingly. 4. DYSLIPIDEMIA - Lipid panel reviewed. Continue high intensity statin. Lipid panel will need to be repeated in approximately 6 weeks. 5. CURRENT EVERY DAY SMOKER - Smoking cessation encouraged. Exam (Progress Note) - Constitutional Vitals: Period Temp Pulse Resp BP Sys/Leyva Pulse Ox Last 24 Hr 96.5 F-99.9 F 89-103 16-20 122-141/76-89 86-98 Exam: General: Appears well with no apparent distress. Pleasant and cooperative. Appears comfortable. HEENT: PERRL, normocephalic, atraumatic. Mucous membranes moist. No jaundice noted. Conjunctiva moist and clear, sclerae anicteric Neck: No JVD/HJR, no thyromegaly or lymphadenopathy noted. Cardiac: Regular rate and rhythm. Lungs: Clear to auscultation. Requiring oxygen via nasal cannula Abdomen: Soft, bowel sounds normoactive. Nontender and nondistended. No abdominal bruit or thrill noted. No masses noted. Extremities: No clubbing, cyanosis noted. No edema noted. Upper extremity pulses 2+. Lower extremity pulses 2+. Capillary refill less than 3 seconds. Right groin soft without bleeding, hematoma and bruit. Skin: No unusual lesions or rashes. No skin breakdown appreciated. Surgical incisions healing well without dehiscence or drainage. Neuro: Awake, alert and oriented 3. Moves all extremities well without hemiparesis or paralysis. No essential tremor is appreciated. Result/EKG - Labs CBC & BMP: 11/19/16 03:35 11/20/16 04:18 Lab Results: I have reviewed the past 24 hour labs Labs: Laboratory Results - last 24 hr 11/19/16 11/19/16 11/19/16 11:25 16:16 20:32 Sodium Potassium Chloride Carbon Dioxide Anion Gap BUN Creatinine GFR Calculation BUN/Creatinine Ratio Glucose POC Glucose 126 H 121 H 119 H Calculated Osmolality Calcium Magnesium 11/20/16 11/20/16 04:18 07:55 Sodium 140 Potassium 3.8 Chloride 104 Carbon Dioxide 28 Anion Gap 11.8 BUN 24 H Creatinine 1.40 H GFR Calculation 66 BUN/Creatinine Ratio 17.00 Glucose 104 POC Glucose 119 H Calculated Osmolality 282.4 Calcium 8.1 L Magnesium 2.5 H Quality Measures - VTE Contraindication to Pharmacological VTE Prophylaxis: High Risk of Bleeding Specialty Discharge - Follow Up or Referrals Follow up with: Francisco Olmedo MD [Physician] - 2 Weeks (With CBC, BMP and EKG) <Evon Lord - Last Filed: 11/20/16 17:48> Cardiology - PN: Subj Interval history: I have personally interviewed and examined the patient, reviewed the chart and discussed medical decision-making with practitioner Meliton. I have read this note and agree with the documentation herein. Exam (Progress Note) - Constitutional Vitals: Period Temp Pulse Resp BP Sys/Leyva Pulse Ox Last 24 Hr 96.5 F-99.8 F 89-103 16-20 107-140/69-89 79-875 Result/EKG - Labs CBC & BMP: 11/19/16 03:35 11/20/16 04:18 Labs: Laboratory Results - last 24 hr 11/19/16 11/20/16 11/20/16 20:32 04:18 07:55 Sodium 140 Potassium 3.8 Chloride 104 Carbon Dioxide 28 Anion Gap 11.8 BUN 24 H Creatinine 1.40 H GFR Calculation 66 BUN/Creatinine Ratio 17.00 Glucose 104 POC Glucose 119 H 119 H Calculated Osmolality 282.4 Calcium 8.1 L Magnesium 2.5 H 11/20/16 11/20/16 11:15 15:39 Sodium Potassium Chloride Carbon Dioxide Anion Gap BUN Creatinine GFR Calculation BUN/Creatinine Ratio Glucose POC Glucose 117 H 145 H Calculated Osmolality Calcium Magnesium
--- NOTE | 2016-11-20 09:03 | Cardiothoracic Progress Note ---
Cardiothoracic Subjective Interval history: Patient looks and feels better. Vital signs have been stable and he is breathing comfortably. His pacing wires have been removed. He is beginning to ambulate more easily. I think he will be ready for discharge in a day or 2. Exam (Progress Note) - Constitutional Vitals: Period Temp Pulse Resp BP Sys/Leyva Pulse Ox Last 24 Hr 96.5 F-99.9 F 89-103 16-20 122-141/76-89 86-98 Result/EKG - Labs CBC & BMP: 11/19/16 03:35 11/20/16 04:18 Labs: Laboratory Results - last 24 hr 11/19/16 11/19/16 11/19/16 11:25 16:16 20:32 Sodium Potassium Chloride Carbon Dioxide Anion Gap BUN Creatinine GFR Calculation BUN/Creatinine Ratio Glucose POC Glucose 126 H 121 H 119 H Calculated Osmolality Calcium Magnesium 11/20/16 11/20/16 04:18 07:55 Sodium 140 Potassium 3.8 Chloride 104 Carbon Dioxide 28 Anion Gap 11.8 BUN 24 H Creatinine 1.40 H GFR Calculation 66 BUN/Creatinine Ratio 17.00 Glucose 104 POC Glucose 119 H Calculated Osmolality 282.4 Calcium 8.1 L Magnesium 2.5 H Quality Measures - VTE Contraindication to Pharmacological VTE Prophylaxis: High Risk of Bleeding Specialty Discharge - Follow Up or Referrals Follow up with: Francisco Olmedo MD [Physician] - 2 Weeks (With CBC, BMP and EKG)
[2016-11-20] MEDS: ROSUVASTATIN 20 MG TABLET PO SCH (20:39)
[2016-11-20] MEDS: ZALEPLON 5 MG CAPSULE PO PRN (20:39)
[2016-11-21] MEDS: ALBUTEROL/IPRATROPIUM 3 ML NEB RESP TX SCH ×4 (02:33→20:25)
[2016-11-21 06:00] LABS: Basophils % 0.3 % (0.0-0.8); Eosinophils # 0.3 10*3/uL (0.0-0.87); Eosinophils % 2.9 % (0.00-10.9); Hematocrit 32.9 VOL% (42.0-52.0); Hemoglobin 11.3 GM/DL (14.0-18.0); Immature Granulocytes Absolute 0.11 #; Lymphocytes # 1.8 10*3/uL (1.4-4.0); Lymphocytes % 16.4 % (21.2-54.2); Mean Corpuscular HGB Conc 34.3 GM/DL (32-36); Mean Corpuscular Hemoglobin 31 PG (27-34); Mean Corpuscular Volume 90.4 FL (87-102); Mean Platelet Volume 11.5 FL (9.6-12.0); Monocytes # 0.9 10*3/uL (0.11-0.8); Monocytes % 8.5 % (1.7-12.7); Neutrophils # 7.9 10*3/uL (1.4-7.4); Neutrophils % 70.9 % (38.7-73.9); Platelet Count 206 T/CUMM (130-400); Red Blood Count 3.64 MC/CUMM (3.8-5.5); Red Cell Distribution Width 13.9 % (9.3-17.3); White Blood Count 11.1 T/CUMM (4-12)
--- NOTE | 2016-11-21 06:28 | Cardiothoracic Progress Note ---
Cardiothoracic Subjective Interval history: Patient looks and feels better. His strength is gradually improving and his vital signs have been stable and he is breathing comfortably. We will continue to increase his activities as tolerated and overall his progress is satisfactory. Exam (Progress Note) - Constitutional Vitals: Period Temp Pulse Resp BP Sys/Leyva Pulse Ox Last 24 Hr 96.6 F-98.5 F 92-105 16-20 103-122/67-83 79-875 Result/EKG - Labs CBC & BMP: 11/21/16 04:50 11/20/16 04:18 Labs: Laboratory Results - last 24 hr 11/20/16 11/20/16 11/20/16 07:55 11:15 15:39 WBC RBC Hgb Hct MCV MCH MCHC RDW Plt Count MPV Neut % (Auto) Lymph % (Auto) [place] % (Auto) Eos % (Auto) Baso % (Auto) Neut # (Auto) Lymph # (Auto) [place] # (Auto) Eos # (Auto) Baso # (Auto) Immature Gran % Nucleated RBC % Immature Gran # Nucleated RBCs # POC Glucose 119 H 117 H 145 H 11/20/16 11/21/16 20:38 04:50 WBC 11.1 RBC 3.64 L Hgb 11.3 L Hct 32.9 L MCV 90.4 MCH 31 MCHC 34.3 RDW 13.9 Plt Count 206 D MPV 11.5 Neut % (Auto) 70.9 Lymph % (Auto) 16.[address] [place] % (Auto) 8.5 Eos % (Auto) 2.9 Baso % (Auto) 0.3 Neut # (Auto) 7.9 H Lymph # (Auto) 1.8 [place] # (Auto) 0.9 H Eos # (Auto) 0.3 Baso # (Auto) 0.0 Immature Gran % 1.0 Nucleated RBC % 0.0 Immature Gran # 0.11 Nucleated RBCs # 0.00 POC Glucose 113 H Quality Measures - VTE Contraindication to Pharmacological VTE Prophylaxis: High Risk of Bleeding Specialty Discharge - Follow Up or Referrals Follow up with: Francisco Olmedo MD [Physician] - 2 Weeks (With CBC, BMP and EKG)
[2016-11-21 06:29] LABS: Alanine Aminotransferase 49 U/L (16-61); Albumin 2.9 G/DL (3.4-5.0); Alkaline Phosphatase 108 U/L (45-117); Aspartate Amino Transferase 29 U/L (0-37); Bilirubin,Indirect 0.4 MG/DL (0.0-1.0); Blood Urea Nitrogen 29 MG/DL (7-18); Calcium 8.7 MG/DL (8.5-10.1); Glucose 109 MG/DL (74-106); Magnesium 2.5 MG/DL (1.8-2.4); Osmolality,Calculated 283.5 MOS/KG (273-304); Potassium 3.6 MMOL/L (3.5-5.1); Sodium 139 MMOL/L (136-145); Total Protein 6.3 G/DL (6.4-8.3)
--- NOTE | 2016-11-21 07:59 | XRay Report ---
XR chest 2V Indication: SOB Comparison: Chest x-ray dated November 19, 2016 Technique: Frontal and lateral views of the chest. Findings: Left-sided internal jugular approach central venous catheter appears grossly unchanged with tip projecting over the expected location of the brachiocephalic confluence. Continued cardiomegaly status post sternotomy. Continued left basilar atelectasis/consolidation with small left pleural fluid. Mild linear atelectasis/scarring within the right lung base. Visualized osseous and surrounding soft tissue structures appear grossly unchanged. IMPRESSION: No significant interval change. PROCEDURE INTERPRETED AT [facility] [place] DEPARTMENT OF RADIOLOGY Final Report Signed by: Dr Christian Hart
[2016-11-21] MEDS: METOPROLOL TARTRATE 50 MG TABLET PO SCH (08:30)
[2016-11-21] MEDS: VALSARTAN/HCTZ 160-12.5 MG TABLET PO SCH ×2 (08:30→13:35)
[2016-11-21] MEDS: DOCUSATE SODIUM 100 MG CAPSULE PO SCH (08:30)
[2016-11-21] MEDS: PANTOPRAZOLE 40 MG TABLET PO SCH (08:30)
[2016-11-21] MEDS: FERROUS SULFATE 325 MG TABLET PO SCH (08:30)
[2016-11-21] MEDS: ASPIRIN EC 325 MG TABLET PO SCH (08:31)
[2016-11-21] MEDS: DILTIAZEM CD 180 MG CAPSULE PO SCH (08:31)
[2016-11-21] MEDS: CHLORHEXIDINE 0.12% ORAL RINSE 60 ML BOTTLE SWISH/SPIT SCH ×2 (08:31→21:08)
[2016-11-21] MEDS: oxyCODONE/ACETAMINOPHEN 5-325 MG TABLET PO PRN (10:45)
--- NOTE | 2016-11-21 11:04 | Cardiology Progress Note ---
<Zara Coelho - Last Filed: 11/21/16 11:22> Assessment and Plan (1) Status post aorto-coronary artery bypass graft Status: Acute Assessment and plan: See plan of care listed below Current Visit: Yes (2) Dyslipidemia Status: Chronic Assessment and plan: See plan of care listed below Current Visit: Yes (3) Coronary artery disease Status: Acute Assessment and plan: See plan of care listed below Current Visit: Yes (4) Essential hypertension Status: Chronic Assessment and plan: See plan of care listed below Current Visit: Yes (5) Tobacco abuse Status: Chronic Assessment and plan: See plan of care listed below Current Visit: Yes (6) Ischemic cardiomyopathy Status: Chronic Assessment and plan: See plan of care listed below. Current Visit: Yes Cardiology - PN: Subj Interval history: Lobby Porter: Dr. Olmedo SUMMARY Mr. Salas 61-year-old male patient routinely followed by Dr. Olmedo was admitted for elective heart catheterization November 15, 2016. He has a history of resection of coronary disease and cardiomyopathy. He underwent heart catheterization November 15, 2016 and was noted to have critical disease of the LAD and RCA. Subsequently, Dr. Elena was consulted for probable bypass surgery. He underwent coronary bypass grafting 3 with WARD to LAD, SVG to obtuse marginal and SVG to right coronary artery November 16, 2016. Left heart catheterization impressions noted below. Impression: 1. Left ventricle is normal size of probably left ventricular hypertrophy with a ejection fraction of 45 and at best 50%. 2. LVEDP is normal at 11 mmHg. 3. Aortic valve is probably tricuspid structure without gradient. 4. No sent mitral valve regurgitation is noted. 5. RCA is dominant with 90% mid stenosis. 6. Left main coronary distally has 30-40% stenosis and calcification. 7. Circumflex arteries a small vessel without significant stenosis. 8. LAD gives rise to a large first diagonal/ramus intermedius branch very proximally. There is 80-90% stenosis of the ostium of the LAD involving the ostium of the first diagonal/ramus intermedius. 9. There is high-grade stenosis of the right and left iliac arteries a total occlusion of the left external iliac with reconstitution of the common femoral artery. Right external iliac has 89% stenosis. 10. Left coronary artery is patent and added for bypass surgery. 11. Successful hemostasis the right common femoral artery. NOVEMBER 21, 2016 UPDATE Patient was seen and examined on the telemetry unit. He is doing well postoperatively. Today is postop day #5. Surgical incisions are healing well without dehiscence or drainage. He reports that he has ambulated down the damon several times early this morning. He has done well and is without chest pain, heaviness and tightness. Denies dyspnea on exertion. Currently not requiring oxygen. PT is seeing patient daily. Reports compliance with incentive spirometry. Telemetry has been reviewed and no evidence of dysrhythmias noted. Vital signs are stable. Labs reviewed. H&H stable. He reports that he will hopefully be discharged home tomorrow per Dr. Elena. Will discuss with Dr. Lord and await her additional recommendations. ASSESSMENT/PLAN 1. CAD, STATUS POST CABG X3, WARD TO LAD, SVG TO OM AND SVG TO RCA - Patient is doing well postoperatively. Continue routine postoperative protocol. Incentive spirometry encouraged. Continue beta-blockade, lipid-lowering agent, ARB and aspirin. 2. ISCHEMIC CARDIOMYOPTHY - EF 45% per [facility]. Continue ARB. Monitor chemistry daily. Creatinine today unchanged at 1.5. Continue beta-blockade. Patient will need repeat echocardiogram in 90 days. 3. HYPERTENSION - Overall BP is clinically stable. However, patient is mildly tachycardic. I will increase beta keren dose and decrease diovan in order to prevent hypotension. Will continue to monitor HR and BP and adjust medications accordingly. 4. DYSLIPIDEMIA - Lipid panel reviewed. Continue high intensity statin. Lipid panel will need to be repeated in approximately 6 weeks. 5. CURRENT EVERY DAY SMOKER - Smoking cessation encouraged. Exam (Progress Note) - Constitutional Vitals: Period Temp Pulse Resp BP Sys/Leyva Pulse Ox Last 24 Hr 96.7 F-98.5 F 94-105 16-20 103-119/67-77 79-875 Exam: General: Appears well with no apparent distress. Pleasant and cooperative. Appears comfortable. HEENT: PERRL, normocephalic, atraumatic. Mucous membranes moist. No jaundice noted. Conjunctiva moist and clear, sclerae anicteric Neck: No JVD/HJR, no thyromegaly or lymphadenopathy noted. Cardiac: Regular rate and rhythm. Lungs: Clear to auscultation. Not requiring oxygen. Abdomen: Soft, bowel sounds normoactive. Nontender and nondistended. No abdominal bruit or thrill noted. No masses noted. Extremities: No clubbing, cyanosis noted. No edema noted. Upper extremity pulses 2+. Lower extremity pulses 2+. Capillary refill less than 3 seconds. Surgical incision to the left lower extremity healing well. [place] are intact. Skin: No unusual lesions or rashes. No skin breakdown appreciated. Surgical incisions healing well without dehiscence or drainage. Neuro: Awake, alert and oriented 3. Moves all extremities well without hemiparesis or paralysis. No essential tremor is appreciated. Result/EKG - Labs CBC & BMP: 11/21/16 04:50 11/21/16 04:50 Lab Results: I have reviewed the past 24 hour labs Labs: Laboratory Results - last 24 hr 11/20/16 11/20/16 11/20/16 11:15 15:39 20:38 WBC RBC Hgb Hct MCV MCH MCHC RDW Plt Count MPV Neut % (Auto) Lymph % (Auto) [place] % (Auto) Eos % (Auto) Baso % (Auto) Neut # (Auto) Lymph # (Auto) [place] # (Auto) Eos # (Auto) Baso # (Auto) Immature Gran % Nucleated RBC % Immature Gran # Nucleated RBCs # Sodium Potassium Chloride Carbon Dioxide Anion Gap BUN Creatinine GFR Calculation BUN/Creatinine Ratio Glucose POC Glucose 117 H 145 H 113 H Calculated Osmolality Calcium Magnesium Total Bilirubin Direct Bilirubin Indirect Bilirubin AST ALT Alkaline Phosphatase Total Creatine Kinase CK-MB (CK-2) Troponin I Total Protein Albumin Globulin Albumin/Globulin Ratio 11/21/16 11/21/16 11/21/16 04:50 04:50 07:16 WBC 11.1 RBC 3.64 L Hgb 11.3 L Hct 32.9 L MCV 90.4 MCH 31 MCHC 34.3 RDW 13.9 Plt Count 206 D MPV 11.5 Neut % (Auto) 70.9 Lymph % (Auto) 16.4 L [place] % (Auto) 8.5 Eos % (Auto) 2.9 Baso % (Auto) 0.3 Neut # (Auto) 7.9 H Lymph # (Auto) 1.8 [place] # (Auto) 0.9 H Eos # (Auto) 0.3 Baso # (Auto) 0.0 Immature Gran % 1.0 Nucleated RBC % 0.0 Immature Gran # 0.11 Nucleated RBCs # 0.00 Sodium 139 Potassium 3.6 Chloride 104 Carbon Dioxide 27 Anion Gap 11.6 BUN 29 H Creatinine 1.50 H GFR Calculation 59 BUN/Creatinine Ratio 19.00 Glucose 109 H POC Glucose 136 H Calculated Osmolality 283.5 Calcium 8.7 Magnesium 2.5 H Total Bilirubin 0.60 Direct Bilirubin 0.20 Indirect Bilirubin 0.4 AST 29 ALT 49 Alkaline Phosphatase 108 Total Creatine Kinase 119 D CK-MB (CK-2) < 1.0 Troponin I 2.040 H D Total Protein 6.3 L Albumin 2.9 L Globulin 3.4 Albumin/Globulin Ratio 0.8 L Quality Measures - VTE Contraindication to Pharmacological VTE Prophylaxis: High Risk of Bleeding Specialty Discharge - Follow Up or Referrals Follow up with: Ramy Elena MD [Physician] - 11/27/16 10:15 am (remove clips) Francisco Olmedo MD [Physician] - 12/13/16 9:30 am (With CBC, BMP and EKG - 9: 30 for lab work and appt 9:50) <Evon Lord - Last Filed: 11/21/16 16:59> Cardiology - PN: Subj Interval history: I have personally interviewed and evaluated the patient, reviewed the chart and discussed medical decision-making with practitioner Gen. I have read this note and agree with her documentation here in. Exam (Progress Note) - Constitutional Vitals: Period Temp Pulse Resp BP Sys/Leyva Pulse Ox Last 24 Hr 97.8 F-98.5 F 66-105 16-20 100-117/54-77 84-104 Result/EKG - Labs CBC & BMP: 11/21/16 04:50 11/21/16 04:50 Labs: Laboratory Results - last 24 hr 11/20/16 11/21/16 11/21/16 20:38 04:50 04:50 WBC 11.1 RBC 3.64 L Hgb 11.3 L Hct 32.9 L MCV 90.4 MCH 31 MCHC 34.3 RDW 13.9 Plt Count 206 D MPV 11.5 Neut % (Auto) 70.9 Lymph % (Auto) 16.4 L [place] % (Auto) 8.5 Eos % (Auto) 2.9 Baso % (Auto) 0.3 Neut # (Auto) 7.9 H Lymph # (Auto) 1.8 [place] # (Auto) 0.9 H Eos # (Auto) 0.3 Baso # (Auto) 0.0 Immature Gran % 1.0 Nucleated RBC % 0.0 Immature Gran # 0.11 Nucleated RBCs # 0.00 Sodium 139 Potassium 3.6 Chloride 104 Carbon Dioxide 27 Anion Gap 11.6 BUN 29 H Creatinine 1.50 H GFR Calculation 59 BUN/Creatinine Ratio 19.00 Glucose 109 H POC Glucose 113 H Calculated Osmolality 283.5 Calcium 8.7 Magnesium 2.5 H Total Bilirubin 0.60 Direct Bilirubin 0.20 Indirect Bilirubin 0.4 AST 29 ALT 49 Alkaline Phosphatase 108 Total Creatine Kinase 119 D CK-MB (CK-2) < 1.0 Troponin I 2.040 H D Total Protein 6.3 L Albumin 2.9 L Globulin 3.4 Albumin/Globulin Ratio 0.8 L 11/21/16 11/21/16 11/21/16 07:16 11:21 16:06 WBC RBC Hgb Hct MCV MCH MCHC RDW Plt Count MPV Neut % (Auto) Lymph % (Auto) [place] % (Auto) Eos % (Auto) Baso % (Auto) Neut # (Auto) Lymph # (Auto) [place] # (Auto) Eos # (Auto) Baso # (Auto) Immature Gran % Nucleated RBC % Immature Gran # Nucleated RBCs # Sodium Potassium Chloride Carbon Dioxide Anion Gap BUN Creatinine GFR Calculation BUN/Creatinine Ratio Glucose POC Glucose 136 H 173 H 152 H Calculated Osmolality Calcium Magnesium Total Bilirubin Direct Bilirubin Indirect Bilirubin AST ALT Alkaline Phosphatase Total Creatine Kinase CK-MB (CK-2) Troponin I Total Protein Albumin Globulin Albumin/Globulin Ratio
[2016-11-21] MEDS ORDERED: METOPROLOL TARTRATE 50 MG TABLET PO SCH (11:19)
[2016-11-21] MEDS ORDERED: METOPROLOL TARTRATE 50 MG TABLET PO ONE (21:00)
[2016-11-21] MEDS: ROSUVASTATIN 20 MG TABLET PO SCH (21:08)
[2016-11-22] MEDS: ALBUTEROL/IPRATROPIUM 3 ML NEB RESP TX SCH ×2 (01:02→07:11)
[2016-11-22 04:49] LABS: Basophils # 0.1 10*3/uL (0.0-0.2); Basophils % 0.6 % (0.0-0.8); Eosinophils # 0.5 10*3/uL (0.0-0.87); Eosinophils % 4.4 % (0.00-10.9); Immature Granulocytes % 0.7 %; Immature Granulocytes Absolute 0.09 #; Lymphocytes # 2.2 10*3/uL (1.4-4.0); Mean Corpuscular HGB Conc 33.3 GM/DL (32-36); Mean Corpuscular Hemoglobin 30 PG (27-34); Mean Corpuscular Volume 90.9 FL (87-102); Mean Platelet Volume 11.1 FL (9.6-12.0); Monocytes # 1.1 10*3/uL (0.11-0.8); Monocytes % 8.5 % (1.7-12.7); Neutrophils # 8.4 10*3/uL (1.4-7.4); Neutrophils % 67.8 % (38.7-73.9); Platelet Count 252 T/CUMM (130-400); Red Blood Count 3.63 MC/CUMM (3.8-5.5); Red Cell Distribution Width 13.9 % (9.3-17.3); White Blood Count 12.4 T/CUMM (4-12)
[2016-11-22 05:31] LABS: Alanine Aminotransferase 50 U/L (16-61); Albumin 2.7 G/DL (3.4-5.0); Alkaline Phosphatase 115 U/L (45-117); Aspartate Amino Transferase 26 U/L (0-37); Bilirubin,Indirect 0.8 MG/DL (0.0-1.0); Blood Urea Nitrogen 32 MG/DL (7-18); Glucose 107 MG/DL (74-106); Magnesium 2.5 MG/DL (1.8-2.4); Osmolality,Calculated 287.3 MOS/KG (273-304); Potassium 3.7 MMOL/L (3.5-5.1); Sodium 141 MMOL/L (136-145); Total Protein 6.1 G/DL (6.4-8.3)
--- NOTE | 2016-11-22 07:04 | Discharge Summary ---
Hospital Course - Hospital Course Hospital Course: History of present illness: Patient is a 61-year-old man who is presented to cardiology for evaluation of recent onset exertional chest pain. Cardiac catheterization was undertaken which demonstrated critical left main coronary artery disease and high-grade occlusion of the right coronary artery. Patient was advised to have urgent bypass surgery and was admitted for that purpose. He is a longtime smoker and has a family history of premature coronary artery disease. Past medical history review of systems social history and family history are documented in his admission note as is his physical examination. Hospital course: Patient was taken to surgery and three-vessel bypass grafting was performed with an internal mammary bypass to the anterior descending coronary artery. Saphenous vein grafts were placed to the right and circumflex marginal coronary arteries. Patient's postoperative course was uncomplicated and he was discharged home on the sixth postoperative day with instructions to return for follow-up in 1 month. Discharge medications are listed below. Specialty Discharge - Follow Up or Referrals Follow up with: Ramy Elena MD [Physician] - 11/27/16 10:15 am (remove clips) Francisco Olmedo MD [Physician] - 12/13/16 9:30 am (With CBC, BMP and EKG - 9: 30 for lab work and appt 9:50) Discharge Plan - Discharge Data Disposition: Disch To Home/Self Care Condition at Discharge: Stable Discharge Diet: advance to your usual diet Activity: resume usual activities as tolerated Hygiene: no restrictions Weight Bearing at Discharge: full weight bearing Driving: not for (10 days) - Discharge Medications New Aspirin EC Tab 325 mg PO DAILY #30 tablet Metoprolol Tartrate Tab [Lopressor Tab] 100 mg PO BID #60 tablet Rosuvastatin [Crestor] 40 mg PO BEDTIME #30 tablet Continue Valsartan/Hydrochlorothiazide [Valsartan-Hctz 320-25 mg Tab] 1 each PO DAILY Diltiazem Cd Cap [Cardizem CD] 180 mg PO DAILY - Follow Up or Referral Follow Up: Ramy Elena MD [Physician] - 11/27/16 10:15 am (remove clips) Francisco Olmedo MD [Physician] - 12/13/16 9:30 am (With CBC, BMP and EKG - 9: 30 for lab work and appt 9:50) - Forms/Instructions Instructions: How to Stop Smoking (GEN), Heart Healthy Diet (GEN), Cigarette Smoking and Your Health (GEN), Coronary Artery Bypass Graft, Spanish 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 ( GEN), Sternal Precautions (GEN) Exam - Constitutional Vitals: Period Temp Pulse Resp BP Sys/Leyva Pulse Ox Last 24 Hr 96.1 F-99.0 F 66-104 16-20 100-116/54-80 86-99 Discharge Results Procedures and tests throughout hospitalization: Pending Orders 11/15/16 14:36 Fresh Frozen Plasma Routine Red Blood Cells Leuko Red Routine Single Donor Platelets Routine Type and Screen Routine 11/22/16 04:00 XR chest 2V IN AM 11/23/16 04:00 BMP w/ Mg [Basic Metabolic Panel w/Mg] IN AM Labs on day of discharge: Labs from last 24 hours 11/22/16 11/22/16 11/21/16 03:35 03:35 19:17 WBC 12.4 H RBC 3.63 L Hgb 11.0 L Hct 33.0 L MCV 90.9 MCH 30 MCHC 33.3 RDW 13.9 Plt Count 252 D MPV 11.1 Neut % (Auto) 67.8 Lymph % (Auto) 18.0 L [place] % (Auto) 8.5 Eos % (Auto) 4.4 Baso % (Auto) 0.6 Neut # (Auto) 8.4 H Lymph # (Auto) 2.2 [place] # (Auto) 1.1 H Eos # (Auto) 0.5 Baso # (Auto) 0.1 Immature Gran % 0.7 Nucleated RBC % 0.0 Immature Gran # 0.09 Nucleated RBCs # 0.00 Immature Plt Fraction 0.0 Sodium 141 Potassium 3.7 Chloride 105 Carbon Dioxide 27 Anion Gap 12.7 BUN 32 H Creatinine 1.50 H GFR Calculation 59 BUN/Creatinine Ratio 21.00 H Glucose 107 H POC Glucose 185 H Calculated Osmolality 287.3 Calcium 8.0 L Magnesium 2.5 H Total Bilirubin 0.90 Direct Bilirubin 0.10 Indirect Bilirubin 0.8 AST 26 ALT 50 Alkaline Phosphatase 115 Total Creatine Kinase 81 D CK-MB (CK-2) < 1.0 Troponin I 1.330 H D Total Protein 6.1 L Albumin 2.7 L Globulin 3.4 Albumin/Globulin Ratio 0.7 L 11/21/16 11/21/16 11/21/16 16:06 11:21 07:16 WBC RBC Hgb Hct MCV MCH MCHC RDW Plt Count MPV Neut % (Auto) Lymph % (Auto) [place] % (Auto) Eos % (Auto) Baso % (Auto) Neut # (Auto) Lymph # (Auto) [place] # (Auto) Eos # (Auto) Baso # (Auto) Immature Gran % Nucleated RBC % Immature Gran # Nucleated RBCs # Immature Plt Fraction Sodium Potassium Chloride Carbon Dioxide Anion Gap BUN Creatinine GFR Calculation BUN/Creatinine Ratio Glucose POC Glucose 152 H 173 H 136 H Calculated Osmolality Calcium Magnesium Total Bilirubin Direct Bilirubin Indirect Bilirubin AST ALT Alkaline Phosphatase Total Creatine Kinase CK-MB (CK-2) Troponin I Total Protein Albumin Globulin Albumin/Globulin Ratio DS: Provider Date of admission: 11/15/16 15:28 Primary care physician: Johnie Christopher DO Attending physician on admission: Matthew Grullon Consults: 11/15/16 13:50 Consult to Dietitian [CONS] Routine Reason for Dietitian: Other Consult Comment: low salt, low cholesterol, diet 11/17/16 11:36 Consult to Cardiac Rehabilitation [CONS] Routine Reason for Cardiac Rehabilitation: Other Consult Comment: Post CABG/heart surgery Consult to Diabetes Center, Educator [CONS] Routine Reason for Soccer Ball Assembler: Diabetes Education Initial Insulin Education Consult Comment: insulin education Consult to Dietitian [CONS] Routine Reason for Dietitian: Dietary Consult Consult Comment: Cardiac, low salt, low cholesterol diet Consult to Physical Therapy [CONS] Routine Reason for Physical Therapy: Other Consult Comment: CV Rehab Discharging clinician: Ramy Elena MD Expected date of discharge: 11/22/16
--- NOTE | 2016-11-22 07:38 | EKG Report ---
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
[2016-11-22 08:20] VITALS: BP 115/70
--- NOTE | 2016-11-22 08:25 | XRay Report ---
History: Shortness of breath Date: 11/22/2016 Study: Chest x-ray PA and lateral Comparison exam: 11/21/2016 There is continued cardiomegaly. The mediastinal contours are stable in this patient status post previous median sternotomy. The left IJ central line remains in stable position. The pulmonary vasculature is not engorged. There is some continued atelectatic parenchymal consolidation in the left lung base, though this has improved. There is continued mild to moderate left pleural effusion, slightly improved. There is platelike atelectasis of the right lung as before. There is no new or worsening infiltrate. Osseous structures are unchanged. Impression: Persistent but improved left basilar atelectasis/infiltrate and pleural effusion compared to the previous study PROCEDURE INTERPRETED AT [facility] DEPARTMENT OF RADIOLOGY Final Report Signed by: Dr. Marjan Sim
[2016-11-22] MEDS ORDERED: METOPROLOL TARTRATE 50 MG TABLET PO SCH (09:00)
[2016-11-22] MEDS: FERROUS SULFATE 325 MG TABLET PO SCH (09:07)
[2016-11-22] MEDS: DILTIAZEM CD 180 MG CAPSULE PO SCH (09:07)
[2016-11-22] MEDS: ASPIRIN EC 325 MG TABLET PO SCH (09:07)
[2016-11-22] MEDS: PANTOPRAZOLE 40 MG TABLET PO SCH (09:07)
[2016-11-22] MEDS: DOCUSATE SODIUM 100 MG CAPSULE PO SCH (09:07)
[2016-11-22] MEDS: VALSARTAN/HCTZ 160-12.5 MG TABLET PO SCH (09:07)
== END 2016-11-22 10:42 | disposition home or self-care (01) | DRG 234 ==
LOC: N.CL 11:04 → N.TELES 15:07 → N.CVR 11-16 11:52 → N.TELES 11-17 11:35
PROVIDERS: ADMIT Internal Medicine Cardiovascular Disease; ATTEND Internal Medicine Cardiovascular Disease